=== PATIENT | female | born 1950 | race Caucasian/White ===

== ENCOUNTER 2024-03-27 13:53 | Inpatient (IN) | payer MEDICARE, OTHER, SELFPAY ==
[2024-03-27 13:27] VITALS: BP 147/46; PULSE 83; RESP 17; TEMP 36.6; O2SAT 99; BMI 42.7
[2024-03-27] MEDS: Acetaminophen 500 MG Tablet 1000 MG PO ×2 (15:57→22:16)
[2024-03-27 17:05] VITALS: BP 135/48; PULSE 61; RESP 18; TEMP 36.8; O2SAT 93
[2024-03-27] MEDS: Atorvastatin Calcium 20 MG Tablet PO (22:16)
[2024-03-27] MEDS: DULoxetine Hcl 20 MG Capsule PO (22:17)
[2024-03-27] MEDS: Rivaroxaban 15 MG Tablet PO (22:17)
[2024-03-27] MEDS: Pregabalin 75 MG Capsule PO (22:19)
[2024-03-28] MEDS: Acetaminophen 500 MG Tablet 1000 MG PO ×3 (05:12→21:13)
[2024-03-28 05:15] VITALS: BP 145/79; PULSE 60; RESP 15; TEMP 36.6; O2SAT 96
[2024-03-28 06:57] LABS: Absolute Lymphocyte Count 2.11 X10^3/uL (0.83-4.51); Absolute Neutrophil Count 9.3 X10^3/uL (2.0-7.7); Basophil# 0.07 X10^3/uL; Basophil% 0.5 % (0-1); Eosinophil# 0.33 X10^3/uL; Eosinophils% 2.5 % (0-5); Hematocrit 29.3 % (37-47); Hemoglobin 9.1 g/dL (12.0-15.0); Lymphocyte # 2.11 X10^3/ul (0.83-4.51); Lymphocyte % 16.2 % (19-41); Mean Corp Hgb Conc 31.1 g/dL (32-36); Mean Corpuscular Hgb 30.8 pg (27.0-32.0); Mean Corpuscular Volume 99.3 fL (81-99); Mean Platelet Vol. 11.2 fl (6.2-12.0); Monocyte# 0.58 X10^3/uL; Monocyte% 4.5 % (0-10); NRBC Flagged by Analyzer 0 % (0-5); Neutrophil # 9.33 X10^3/uL (2.7-7.7); Neutrophil % 71.9 % (47-70); Platelet Count 312 K/mm3 (150-450); RBC Distribution Width CV 14.4 % (11.6-14.6); RBC Distribution Width SD 51.5 fl (35.1-43.9); Red Blood Count 2.95 M/mm3 (4.2-5.4)
[2024-03-28 07:47] LABS: ALB/GLOB Ratio 0.6 RATIO (0.9-2.4); AST(SGOT) 18 U/L (15-37); Alanine Aminotransfer ALT/SGPT 12 U/L (13-56); Albumin, Serum 2.3 g/dL (3.2-5.0); Alkaline Phosphatase 90 U/L (45-117); Anion Gap 7 (5-15); BUN 12 mg/dL (7-18); BUN/Creat Ratio 12.6 RATIO (10-20); Calcium,Total 8.7 mg/dL (8.5-10.1); Chloride 104 mmol/L (98-107); Creatinine, Serum 0.96 mg/dL (0.55-1.02); EST Glomerular Filtration Rate 61 mL/min (>60); Est Glom Filt Rate - Afr Amer 74 mL/min (>60); Estimated Creatinine Clearance 63.78 ml/min; Globulin 3.7 g/dL (2.2-4.2); Glucose 75 mg/dL (74-106); Magnesium 1.7 mg/dL (1.6-2.6); Phosphorus 3.6 mg/dL (2.5-4.9); Potassium 4.2 mmol/L (3.5-5.1); Sodium Level 137 mmol/L (136-145); Uric Acid 2.5 mg/dL (2.6-6.0)
[2024-03-28] MEDS: Pantoprazole Sodium 40 MG Tablet PO (07:53)
[2024-03-28] MEDS: Allopurinol 300 MG Tablet PO (07:53)
[2024-03-28] MEDS: Rivaroxaban 15 MG Tablet PO ×2 (07:53→21:13)
[2024-03-28] MEDS: amLODIPine 5 MG Tablet PO (07:53)
[2024-03-28] MEDS: Lisinopril 20 MG Tablet PO (07:53)
[2024-03-28] MEDS: Pregabalin 75 MG Capsule PO ×2 (07:53→21:09)
[2024-03-28 08:00] VITALS: BP 143/48; PULSE 65
--- NOTE | 2024-03-28 14:21 | PCM.HP.STD ---
HPI - General General Date of Admission: 03/27/24 Date of Service: 03/28/24 Chief Complaint: Debility due to lumbar fusion and BL PE's post op HPI Narrative SUNNY CHIRINOS, is a 73 YO F with a PMH of HTN, HLD, morbid obesity, generalized anxiety disorder with panic attacks/depression (when she was hannah-menopausal - this resolved. Recently started on duloxetine for chronic pain), gout, pharyngeal esophageal dysphagia, GERD, osteoarthritis and lumbar radiculopathy/neurogenic claudication. She underwent a transforaminal lumbar interbody fusion on 03/14/24. She was discharged home but developed pain in her feet/calves and poor appetite and saw her PCP on 03/21/2024. Lab work was done and was notable for a white blood cell count of 28,000, sodium of 127 and a creatinine of 2.1. She was sent to the local emergency department at the advice of her PCP and her blood pressure was 70s over 50s. Serum lactate was elevated at 2.9. W/U was + for BL PE's and DVT of the left femoral, popliteal, gastrocnemius and tibial peroneal veins. There was no evidence of right heart strain. She was hydrated and started on IV vancomycin/cefepime. She was admitted to [facility]. She was initiated on a heparin infusion and later transitioned to Xarelto. Empiric antibiotics were stopped when the patient presented to [facility]. She was transferred to the acute inpt rehab unit at [facility] on 03/27/24 for 3 hours of therapy daily to restore function/independence at or near her baseline. All documentation from [facility] was reviewed, including the med list. Afebrile since arrival at [facility]. Blood pressure has ranged from 135/48 to 145/79. Heart rate is ranged from 60-83. All lab from this morning was personally reviewed. The white blood cell count is 13 with 72% neutrophils and 4.4% immature granulocytes. Platelets are within normal limits. Hemoglobin is 9.1 with an MCV of 99.3 and an elevated RDW. Sodium is 137 and the potassium is 4.2. Serum bicarb is normal. The BUN is 12 with a creatinine of 0.96 and a creatinine clearance of 64. Uric acid is 2.5. Phosphorus is 3.6 and the magnesium is borderline low at 1.7. LFTs are unremarkable. PFSH Medical History (Updated 03/29/24 @ 13:[address] Liz Parsons DO) History of gout Osteoarthritis Anxiety and depression Morbid obesity with BMI of 40.0-44.9, adult Ventral hernia without obstruction or gangrene Neurogenic claudication due to lumbar spinal stenosis Spondylolisthesis High cholesterol Chronic pain Hypertension DVT (deep venous thrombosis) Pulmonary embolism GERD (gastroesophageal reflux disease) Home Medications ?Medication ?Instructions ?Recorded ?Last Taken ?Type acetaminophen 500 mg capsule 1,000 mg PO Q8 Pain 03/27/24 03/26/24 History allopurinol 300 mg tablet 300 mg PO DAILY Gout 03/27/24 03/27/24 History amlodipine 5 mg-benazepril 20 mg 1 cap PO DAILY BP 03/27/24 Unknown History capsule duloxetine 20 mg capsule,delayed 20 mg PO QHS Back pain 03/27/24 03/26/24 History release (Cymbalta) pantoprazole 40 mg tablet,delayed 40 mg PO DAILY GERD 03/27/24 03/27/24 History release pregabalin 75 mg capsule 75 mg PO BID Spinal stenosis 03/27/24 Unknown History rivaroxaban 15 mg tablet 15 mg PO BID Blood thinner 03/27/24 03/27/24 History rivaroxaban 20 mg tablet 20 mg PO DAILY Blood thinner 03/27/24 Unknown History rosuvastatin 10 mg tablet 10 mg PO DAILY Cholestrol 03/27/24 03/27/24 History Allergy/AdvReac Type Severity Reaction Status Date / Time Penicillins AdvReac Unknown Other Verified 03/27/24 14:21 Sulfa (Sulfonamide AdvReac Unknown Rash Verified 03/27/24 14:21 Antibiotics) (sulfa drugs) Family History (Updated 03/28/24 @ 15:[address] Liz Parsons DO) Mother Breast cancer Heart disease Mother had atrial fibrillation. She passed at the age of 89 after a fall. Father CVA (cerebral vascular accident) Cancer Prostate Brother Degenerative disc disease Has had surgery on the cervical spine and the lumbar spine. Sister No problems noted. Surgical History History of removal of ovarian cyst Hx of cholecystectomy H/O adenoidectomy History of tonsillectomy Hx of total knee arthroplasty S/P lumbar fusion Social History (Updated 03/28/24 @ 15:[address] Liz Parsons, ) household members: spouse housing: other details: [place] basement. One-step to enter house number of children: 3 pets and animals: No Smoking Status: Never smoker alcohol intake: current alcohol intake frequency: a few times a month Alcohol type: beer substance use type: does not use ROS Constitutional Constitutional: Reports fatigue; Denies anorexia, change in weight, chills, fever(s), night sweats or weakness Eyes Eyes: Denies blurry vision, change in vision, eye pain or loss of vision ENT HEENT: Denies abnormal hearing, dysphagia, headache(s), hearing loss, nasal congestion or sore throat Cardiovascular Cardiovascular: Denies chest pain, dyspnea on exertion, edema, lightheadedness, orthopnea, palpitations, paroxysmal nocturnal dyspnea or syncope Respiratory/Chest Respiratory/Chest: Denies cough, dyspnea, shortness of breath at rest, shortness of breath with exertion or wheezing Gastrointestinal Gastrointestinal: Denies abdominal pain, constipation, diarrhea, dyspepsia, hematemesis, hematochezia, nausea or vomiting Genitourinary Genitourinary: Denies dysuria, hematuria, nocturia, urinary frequency, urinary hesitancy, urinary incontinence or urinary urgency Musculoskeletal Musculoskeletal: Reports back pain, extremity pain, radiating pain into limb and stiffness; Denies joint pain, joint swelling or neck pain Integumentary Integumentary: Reports other Details: Surgical incision over lumbar spine ; Denies alopecia, changing lesions, jaundice, pruritus or rash Neurologic Neurologic: Reports radicular pain and other Details: Radicular pain, primarily into the right lower extremity ; Denies confusion, disequilibrium, dizziness, focal weakness, headache(s), paresthesias, seizures or tremor(s) Psychiatric Psychiatric: Denies anxiety, depression, homicidal ideation or suicidal ideation Endocrine Endocrinology: Denies change in body appearance, polydipsia or polyuria Hematologic/Lymphatic Hematologic/Lymphatic: Denies easy bleeding, easy bruising or lymphadenopathy Allergic/Immunologic Allergic/Immunologic: Denies rhinitis, eczemia or asthma Vital Signs Vital Signs Vital Signs: 03/27/24 17:05 03/27/24 20:08 03/28/24 05:15 Temperature 98.2 F 98 F Temperature Source Temporal Oral Pulse Rate 61 60 Respiratory Rate 18 15 Respiratory Effort Normal Respiratory Depth Normal Respiratory Pattern Normal Blood Pressure 135/48 H 145/79 H Blood Pressure Mean 77 101 Blood Pressure Source Monitor Blood Pressure Position Sitting Blood Pressure Location Left Arm Pulse Ox 93 96 Oxygen Delivery Method Room Air Room Air Room Air 03/28/24 08:00 Temperature Temperature Source Pulse Rate 65 Respiratory Rate Respiratory Effort Respiratory Depth Respiratory Pattern Blood Pressure 143/48 H Blood Pressure Mean 79 Blood Pressure Source Monitor Blood Pressure Position Sitting Blood Pressure Location Right Arm Pulse Ox Oxygen Delivery Method Weight Weight: 241 lb Body Mass Index (BMI) 42.7 Physical Exam Const alert, oriented x3, no apparent distress and well nourished General Appearance: cooperative and well kempt HEENT moist oral mucous membranes HEENT Narrative: No thrush Eyes PERRL, EOMs intact bilaterally, conjunctivae normal and no scleral icterus Eyes Narrative: No discharge from the eyes and no mattering of the eyelashes. Neck no JVD, No nodes and no carotid bruits General: trachea midline Chest Chest: symmetrical chest wall rise Resp normal respiratory effort, no use of accessory muscles and clear to auscultation bilaterally Effort and Inspection: able to speak in complete sentences Cardio regular rate, regular rhythm, S1 normal heart sound, S2 normal heart sound, no murmurs, no rub and no gallops Cardio Narrative: No ectopy GI normal to inspection, nondistended, normoactive bowel sounds, soft to palpation and non-tender GI Narrative: No guarding with palpation. Tells me her bowels are moving regularly. no CVA tenderness Narrative: No longer having hesitancy and straining to urinate since the surgery. Denies dysuria. Extremity no calf tenderness Extremity Narrative: She chronically has some edema of her lower extremities, especially at night. Does not tolerate FISH hose very well and states they increased the pain in her legs. She has superficial varicosities. Skin over the distal lower extremities is dry. No openings in the skin over the lower extremities. Good capillary refill. Skin Skin Narrative: The lumbar incision is healing. There is no dehiscence and there is no purulent DC. here is some dried blood and serous drainage at the margins of the incision. No hannah-incisional erythema. Neuro oriented x3, CN's II-XII intact bilaterally and moves all extremities Psych mental status grossly normal, thought process normal, cooperative, affect normal, speech normal, activity/motor behavior normal, denies hallucinations and denies suicidal ideation Appearance: appropriate and well kempt Attitude: calm Activity / Motor Behavior: appropriate eye contact Results Lab / Micro Data 03/28/24 06:43 03/28/24 06:43 Labs: Laboratory Results - last 24 hr 03/28/24 06:43: WBC 13.0 H, RBC 2.95 L, Hgb 9.1 L, Hct 29.3 L, MCV 99.3 H, MCH 30.8, MCHC 31.1 L, RDW Std Deviation 51.5 H, RDW Coeff of Nikia 14.4, Plt Count 312, MPV 11.2, Immature Gran % (Auto) 4.400 H, Neut % (Auto) 71.9 H, Lymph % (Auto) 16.2 L, Meigs % (Auto) 4.5, Eos % (Auto) 2.5, Baso % (Auto) 0.5, Absolute Neuts (auto) 9.3 H, Absolute Lymphs (auto) 2.11, Nucleated RBC % 0, Sodium 137, Potassium 4.2, Chloride 104, Carbon Dioxide 26.0, Anion Gap 7, BUN 12, Creatinine 0.96, Estim Creat Clear Calc 63.78, Est GFR (MDRD) Af Amer 74, Est GFR (MDRD) Non-Af 61, BUN/Creatinine Ratio 12.6, Glucose 75, Uric Acid 2.5 L, Calcium 8.7, Phosphorus 3.6, Magnesium 1.7, Total Bilirubin 0.40, AST 18, ALT 12 L, Alkaline Phosphatase 90, Total Protein 6.0 L, Albumin 2.3 L, Globulin 3.7, Albumin/Globulin Ratio 0.6 L Assessment & Plan Assessment/Plan (1) Debility: (2) Pulmonary embolism: QUALIFIERS: Pulmonary embolism type: unspecified Chronicity: acute Acute cor pulmonale presence: without acute cor pulmonale Qualified Code(s): I26.99 - Other pulmonary embolism without acute cor pulmonale PLAN: Multiple bilateral. (3) DVT (deep venous thrombosis): QUALIFIERS: DVT location: lower extremity Affected thrombotic vein of extremity: unspecified lower extremity proximal vein Chronicity: acute Laterality: left Qualified Code(s): I82.4Y2 - Acute embolism and thrombosis of unspecified deep veins of left proximal lower extremity PLAN: Left femoral, popliteal, gastrocnemius and tibioperoneal veins. (4) S/P lumbar fusion: PLAN: 03/14/2024 at [facility]. (5) Acute blood loss as cause of postoperative anemia: (6) MARKIE (acute kidney injury): PLAN: Resolved with hydration. (7) Chronic anticoagulation: PLAN: Currently on loading dose of Xarelto, 15 mg twice daily. Will need anticoagulation for 6 months. (8) High cholesterol: PLAN: Continue rosuvastatin (9) Hypertension: QUALIFIERS: Hypertension type: primary hypertension Qualified Code(s): I10 - Essential (primary) hypertension PLAN: Continue amlodipine and lisinopril. (10) GERD (gastroesophageal reflux disease): QUALIFIERS: Esophagitis presence: without esophagitis Qualified Code(s): K21.9 - Gastro-esophageal reflux disease without esophagitis PLAN: Continue Protonix. (11) History of gout: PLAN: Plan PLAN PT for gait stability OT for ADL's Analgesics as needed - on only Tylenol at admission to rehab but, the ambulance ride from [facility] exacerbated the radicular pain in the RLE. Will add Oxycodone 10 mg in the AM and at HS and also 5 mg Q4H for pain 4-10. Tells me that she tolerates the Oxy with no constipation, no fatigue, no increased somnolence and no nausea. Bowel protocol Fall precautions Assess for Anxiety/Depression GI prophylaxis -pantoprazole DVT prophylaxis -currently being actively treated for bilateral pulmonary emboli and DVT in the left lower extremity. Currently on a loading dose of Xarelto 15 mg twice daily and will transition to 20 mg once daily after the load is completed. Follow up with PCP and neurosurgeon following DC from [facility] AM lab including CMP, CBC, Mag and Phos -personally reviewed Incentive spirometry. Encouraged her to get up and walk around the room every hour while awake. Switch out the recliner for a straight back chair Start Dejon for wound healing. Check a Hemoccult stool UA is only 2.5 mg - likely does no0t need 300 mg of Allopurinol Overnight trending pulse ox Tells me that she snores at night....yolande if she lies on her back which she is having to do now since she had the lumbar fusion. 1. Do you snore loudly? Y 2. Do you often feel tired, fatigued or sleepy during the day? N 3. Has anyone ever observed you stop breathing during sleep? N 4. Do you have (or are you being treated for) HTN? Y BMI 42.7 AGE 73 Neck circumference 39 cm Gender F Total 4 Charges/Coding Visit Charges Inpatient E&M: 03843 Init Hosp L2
[2024-03-28] MEDS: oxyCODONE 5 MG Tablet PO (15:36)
[2024-03-28 15:50] VITALS: O2SAT 98
[2024-03-28 18:00] VITALS: BP 107/60; PULSE 72; RESP 16; TEMP 36.3; O2SAT 100
[2024-03-28 19:59] VITALS: RESP 16; O2SAT 96
[2024-03-28] MEDS: oxyCODONE 5 MG Tablet 10 MG PO (21:09)
[2024-03-28] MEDS: Atorvastatin Calcium 20 MG Tablet PO (21:13)
[2024-03-28] MEDS: DULoxetine Hcl 20 MG Capsule PO (21:13)
--- NOTE | 2024-03-28 21:18 | NURSING ---
Neck circumference measured per pt order. Neck measure was 39cm.
[2024-03-28 21:58] VITALS: PULSE 68; O2SAT 96
[2024-03-29 06:00] VITALS: BP 125/48; PULSE 64; RESP 17; TEMP 36.6; O2SAT 98
[2024-03-29] MEDS: Acetaminophen 500 MG Tablet 1000 MG PO ×3 (06:18→21:22)
[2024-03-29] MEDS: oxyCODONE 5 MG Tablet 10 MG PO ×2 (06:29→21:21)
[2024-03-29] MEDS: Pregabalin 75 MG Capsule PO ×2 (07:59→21:29)
[2024-03-29] MEDS: amLODIPine 5 MG Tablet PO (07:59)
[2024-03-29] MEDS: Rivaroxaban 15 MG Tablet PO ×2 (08:00→21:22)
[2024-03-29] MEDS: Pantoprazole Sodium 40 MG Tablet PO (08:00)
[2024-03-29] MEDS: Allopurinol 300 MG Tablet PO (08:00)
[2024-03-29] MEDS: Lisinopril 20 MG Tablet PO (08:00)
--- NOTE | 2024-03-29 11:09 | PCM.PROGNOTE ---
Subjective Subjective Afebrile VSS - Maintaining appropriate oxygen saturation on RA Oral intake - FOOD good FLUIDS good Discussed with nursing - had an emesis last night. she stated this happens sometimes and is often related to food.....she attributed the episode last night a a food addictive which I suspect may have been Dejon added yesterday for wound healing. Reviewed the THERAPY notes Medication list reviewed. I reviewed the overnight tending pulse ox and she is < 89% only 50 sec during the time she was monitored. There were no desaturation events. Kamala tells me her pain is much better today with the scheduled pain medication. She slept well last night. She had an episode of nausea with a small emesis and attributes this to Dejon. She denies nausea today and also denies abdominal pain. Denies constipation. Denies chest pain, shortness of breath at rest, shortness of breath with exertion, dysuria, night sweats, shaking chills. Objective Data Objective Data Vital Signs: Vital Signs Temp Pulse Resp BP Pulse Ox O2 Del Method FiO2 97.8 F 64 17 125/48 H 98 Room Air 21 03/29/24 06:00 03/29/24 06:00 03/29/24 06:00 03/29/24 06:00 03/29/24 06:00 03/29/24 08:35 03/28/24 21:58 Oxygen Delivery Method Room Air Weight: 241 lb 0.008 oz Body Mass Index (BMI) 42.7 Intake & Output: Intake and Output for Last 24 Hours 03/27/24 03/28/24 03/29/24 22:59 23:59 23:59 Intake Total 520 / 520 1550 / 1550 440 / 440 Output Total 300 / 300 1450 / 1450 500 / 500 Balance 220 / 220 100 / 100 -60 / -60 Lab / Micro Data 03/28/24 06:43 03/28/24 06:43 Physical Exam Const alert, oriented x3 and no apparent distress Constitutional Narrative: Was napping when I entered the room but arouses fairly easily. General Appearance: cooperative HEENT moist oral mucous membranes Resp normal respiratory effort and clear to auscultation bilaterally Effort and Inspection: Negative for tachypneic, respiratory distress or labored Cardio regular rate and regular rhythm Cardio Narrative: No murmur, no gallop. GI normal to inspection, nondistended, normoactive bowel sounds, soft to palpation and non-tender Extremity Extremity Narrative: Karthikeyan wrap's are in place and she states these are much more comfortable than the FISH hose which were causing pain in the right lower extremity. She denies radicular pain today. Some mild ankle edema bilaterally. Psych cooperative and affect normal Psych Narrative: Good appetite, sleeping well at night. Assessment & Plan Assessment/Plan (1) Debility: (2) Pulmonary embolism: QUALIFIERS: Pulmonary embolism type: unspecified Chronicity: acute Acute cor pulmonale presence: without acute cor pulmonale Qualified Code(s): I26.99 - Other pulmonary embolism without acute cor pulmonale PLAN: Multiple bilateral. (3) DVT (deep venous thrombosis): QUALIFIERS: DVT location: lower extremity Affected thrombotic vein of extremity: unspecified lower extremity proximal vein Chronicity: acute Laterality: left Qualified Code(s): I82.4Y2 - Acute embolism and thrombosis of unspecified deep veins of left proximal lower extremity PLAN: Left femoral, popliteal, gastrocnemius and tibioperoneal veins. (4) S/P lumbar fusion: PLAN: 03/14/2024 at [facility]. (5) Acute blood loss as cause of postoperative anemia: (6) Chronic anticoagulation: PLAN: Currently on loading dose of Xarelto, 15 mg twice daily. Will need anticoagulation for 6 months. PLAN: Plan 1. Continue therapy 2. Discontinue Dejon due to nausea/vomiting 3. Add vitamin C and vitamin D to the current drug regimen to promote wound healing 4. We received confirmation from surgery that the konstantin could be removed. Will remove every other staple today and observe for the next 48 hours. If no dehiscence will remove the remainder of the konstantin. Charges/Coding Visit Charges Inpatient E&M: 68111 Subs Hosp L1
--- NOTE | 2024-03-29 11:14 | PCM.RU.PYE ---
Admission Information Primary Diagnosis:: debility due to Lumbar fusion and BL PE's Status Changes from Prescreening?: No changes Identified Actual Problem List:: Skin Intergrity, Pain, ALteration in Cmfrt, Alteration in Sleep, Mobility Impaired, Self Care Deficit and Alteration-Leisure Activ. Potential Problem List:: DVT, Bleeding, Infection, UTI, Aspiration, Falls, Skin Integrity and Depression Risk of Complications DVT: - (Bilateral lower extremity Karthikeyan wraps and Xarelto) Bleeding: Monitor Lab Values, Nursing to Teach Precautions for anti-coagulation therapy., Wound, if applicable, to be assessed every shift. and Stroke patients assessed for lethargy or change in status. Infection: Clinical Staff to Monitor for S/S of infection: and S/S of infection include fever, redness, warmth, etc. Urinary Tract Infection: Monitor for frequency, burning, discomfort, or incontinence. and Nursing will obtain urine sample for urinalysis and C&S when ordered. Aspiration: Clinical staff will monitor for coughing, drooling, congestion., Speech will evaluate swallowing and dsyphasia. and Nursing will monitor patient swallowing during meals. Falls: Patient will be evaluated for Fall Precautions and Patient will be placed on Fall Precautions as indicated per protocol. Skin Breakdown: Nursing will assess skin daily using assessment tool. and Nursing will place on Skin Breakdown Precautions as indicated. Pain: Clinical staff will assess patient's pain level per protocol., Medications will be given, if needed, and the pain level reassessed. and Other methods: Massage, distraction, decrease stimulus, etc. used PRN. Plan of Care Patient requires physician specializing in physical medicine and rehab oversight to provide close medical supervision of rehab issues including: Pain Management, Sleep Problems, Bowel and Bladder, Medical and co-morbidity Management, DVT prophylaxis, Rehabilitation Leadership and Coordination of treatment team Patient needs Physical Therapy: For a minimum of 1 hour and At least 5 out of 7 days Patient needs Physical Therapy to improve:: Mobility, Strengthening, Transfers, Stretching, ROM, Endurance, Stairs, Gait and Balance Patient needs Occupational Therapy: For a minimum of 1 hour and At least 5 out of 7 days Patient needs Occupational Therapy to improve ADL's incl.: Eating, Grooming, Bathing, Dressing, Toileting, Toilet transfers, Community Reintegration, Higher functioning activities, Household tasks, Adaptive Equipment, Splinting and Other activities as determined Patient requires 24/ Rehabilitation Nursing for: Pain Issues, Identifying and preventing risk factors, Monitoring and reporting current medical conditions, Assisting with ambulation, transfer, and all ADL's, Teaching patients about disease process and medications, Family teaching, Providing safe environment, Bowel and Bladder Issues, Skin integrity and Medication Management Patient needs Gerentological Physiotherapist/ Case Management for: Discharge Planning, Arranging Home Equipment or Services and Family Interventions Patient needs Dietary and Nutrition Services for: Adequate Nutrition, Nutritional Supplements and Nutritional Education Goals Goals Patient will remain: free from falls Patient will perform eating at: MOD I level of assist. Patient will perform bed mobility at: MOD I level of assist. Patient will complete transfers from bed to chair at: MOD I level of assist. Patient will ambulate: - (Greater than 300 feet with least restrictive device at modified) Patient will complete upper body dressing at: MOD I level of assist. Patient will complete lower body dressing at: MOD I level of assist. (With adaptive equipment as needed) Patient will complete toilet transfer at: MOD I level of assist. Patient will complete toileting at: MOD I level of assist. Patient will perform bathing at: MOD I level of assist. (Upper body bathing independently and lower body bathing with assistive equipment as needed at mod I.) Patient will perform Tub/Shower transfer at: - (Supervision with DME as needed) Patient will complete grooming at: MOD I level of assist. (While standing at the sink) Patient will complete home management skills at: MOD I level of assist. Patient will achieve: 12 stairs and - (1 curb step at mod I so she can enter her home.) Patient will have pain level of: of 3 or less Patient's skin will: remain intact Patient will receive: adequate nutrition. Discharge Planning Estimated Length of stay (days): 14 Anticipated D/C Destination: Home with Outpt Therapy Was Preadmission Assessment Accurate?: Yes
--- NOTE | 2024-03-29 13:15 | CASEMGMT ---
Social Work SW requested pt have family provide advanced directives. Lindy Rendon, [employer] APPRENTICE
--- NOTE | 2024-03-29 14:24 | NURSING ---
Addendum entered by Massiel Dimas 03/29/24 15:16: 9 konstantin remain Original Note: Every other staple from back incision removed at this time. Incision remains well approximated. Area cleansed and scant amount of blood from lower staple noted. Last staple remaining in incision more imbedded and more difficult to visualize, to be aware of with removal of remaining konstantin.
[2024-03-29] MEDS: Vitamin E 400 UNITS Capsule PO (14:51)
[2024-03-29] MEDS: Ascorbic Acid 500 MG Tablet PO (16:18)
[2024-03-29 18:00] VITALS: BP 108/47; PULSE 63; RESP 18; TEMP 36.6; O2SAT 99
[2024-03-29] MEDS: Atorvastatin Calcium 20 MG Tablet PO (21:21)
[2024-03-29] MEDS: DULoxetine Hcl 20 MG Capsule PO (21:21)
[2024-03-29 22:00] VITALS: PULSE 82; RESP 15; O2SAT 96
[2024-03-30 06:00] VITALS: BP 113/42; PULSE 68; RESP 16; TEMP 36.9; O2SAT 98
[2024-03-30] MEDS: Acetaminophen 500 MG Tablet 1000 MG PO ×3 (06:27→20:27)
[2024-03-30] MEDS: oxyCODONE 5 MG Tablet 10 MG PO ×2 (06:27→20:26)
[2024-03-30] MEDS: Pantoprazole Sodium 40 MG Tablet PO (08:22)
[2024-03-30] MEDS: Senna/Docusate Sodium 1 Tablet 2 TABLET PO ×2 (08:22→20:27)
[2024-03-30] MEDS: Allopurinol 300 MG Tablet PO (08:23)
[2024-03-30] MEDS: Ascorbic Acid 500 MG Tablet PO ×2 (08:23→16:58)
[2024-03-30] MEDS: Vitamin E 400 UNITS Capsule PO (08:23)
[2024-03-30] MEDS: Rivaroxaban 15 MG Tablet PO ×2 (08:23→20:26)
[2024-03-30] MEDS: Lisinopril 20 MG Tablet PO (08:23)
[2024-03-30] MEDS: amLODIPine 5 MG Tablet PO (08:23)
[2024-03-30] MEDS: Pregabalin 75 MG Capsule PO ×2 (08:25→20:27)
--- NOTE | 2024-03-30 09:52 | PN_ITS ---
Subjective Subjective Afebrile VSS - Maintaining appropriate oxygen saturation on RA Oral intake - FOOD good FLUIDS good Discussed with nursing - no problems that need addressed Reviewed the THERAPY notes Medication list reviewed. Nausea resolved with the discontinuation of Dejon. Kamala denies lightheadedness, palpitations, shortness of breath, chest pain, nausea/vomiting/abdominal pain, dysuria and calf tenderness. She tells me she slept well last night. Appetite is good. Denies night sweats and chills. States pain is adequately controlled with current drug regimen. She is complaining of generalized achiness today. It is raining today and all of the older folks on rehab are c/o achiness. Every other staple was removed from the lumbar incision yesterday. Has not had a bowel movement since 03/28/2024 so Hemoccult has not been collected yet. Objective Data Objective Data Vital Signs: Vital Signs Temp Pulse Resp BP Pulse Ox O2 Del Method FiO2 98.5 F 68 16 113/42 L 98 Room Air 21 03/30/24 06:00 03/30/24 06:00 03/30/24 06:00 03/30/24 06:00 03/30/24 06:00 03/30/24 06:00 03/28/24 21:58 Oxygen Delivery Method Room Air Weight: 241 lb 0.008 oz Body Mass Index (BMI) 42.7 Intake & Output: Intake and Output for Last 24 Hours 03/28/24 03/29/24 03/30/24 23:59 23:59 23:59 Intake Total 1550 / 1550 2030 / 2030 320 / 320 Output Total 1450 / 1450 1800 / 1800 300 / 300 Balance 100 / 100 230 / 230 20 / 20 Lab / Micro Data 03/28/24 06:43 03/28/24 06:43 Physical Exam Const alert, oriented x3 and no apparent distress General Appearance: cooperative Resp clear to auscultation bilaterally Effort and Inspection: Negative for tachypneic Cardio regular rate and regular rhythm Cardio Narrative: No ectopy GI normal to inspection, nondistended, normoactive bowel sounds, soft to palpation and non-tender Extremity no calf tenderness General Extremity: edema Skin Skin Narrative: Every other staple was removed yesterday. The incision is intact but, there is a small area at the distal pole of the incision that had a small amount of dehiscence. This area is healing. No hannah-incisional erythema and no DC from the wound today. Due to body habitus there is a fair amount of tension on the margins of the incision. Will re-evaluate Thursday and possibly remove more konstantin at that time. General Skin Exam: no breakdown Rashes: no rashes Psych affect normal Assessment & Plan Assessment/Plan (1) Debility: (2) Pulmonary embolism: QUALIFIERS: Pulmonary embolism type: unspecified Chronicity: a cute Acute cor pulmonale presence: without acute cor pulmonale Qualified Code(s): I26.99 - Other pulmonary embolism without acute cor pulmonale PLAN: Multiple bilateral. (3) DVT (deep venous thrombosis): QUALIFIERS: DVT location: lower extremity Affected thrombotic vein of extremity: unspecified lower extremity proximal vein Chronicity: acute Laterality: left Qualified Code(s): I82.4Y2 - Acute embolism and thrombosis of unspecified deep veins of left proximal lower extremity PLAN: Left femoral, popliteal, gastrocnemius and tibioperoneal veins. (4) S/P lumbar fusion: PLAN: 03/14/2024 at [facility]. (5) Acute blood loss as cause of postoperative anemia: (6) Chronic anticoagulation: PLAN: Currently on loading dose of Xarelto, 15 mg twice daily. Will need anticoagulation for 6 months. PLAN: Plan 1. Continue therapy 2. No changes to the drug regimen today. Charges/Coding Visit Charges Inpatient E&M: 08074 [facility] L1
[2024-03-30] MEDS: oxyCODONE 5 MG Tablet PO (12:08)
[2024-03-30 17:33] VITALS: BP 105/47; PULSE 68; RESP 17; TEMP 36.3; O2SAT 99
[2024-03-30] MEDS: DULoxetine Hcl 20 MG Capsule PO (20:26)
[2024-03-30] MEDS: Atorvastatin Calcium 20 MG Tablet PO (20:27)
[2024-03-31] MEDS: Acetaminophen 500 MG Tablet 1000 MG PO ×3 (05:50→20:57)
[2024-03-31] MEDS: oxyCODONE 5 MG Tablet 10 MG PO ×2 (05:51→20:57)
[2024-03-31 06:00] VITALS: BP 135/52; PULSE 68; RESP 18; TEMP 36.3; O2SAT 96
[2024-03-31] MEDS: Senna/Docusate Sodium 1 Tablet 2 TABLET PO ×2 (08:07→20:57)
[2024-03-31] MEDS: Rivaroxaban 15 MG Tablet PO ×2 (08:07→20:57)
[2024-03-31] MEDS: Ascorbic Acid 500 MG Tablet PO ×2 (08:08→17:01)
[2024-03-31] MEDS: amLODIPine 5 MG Tablet PO (08:08)
[2024-03-31] MEDS: Lisinopril 20 MG Tablet PO (08:09)
[2024-03-31] MEDS: Pantoprazole Sodium 40 MG Tablet PO (08:09)
[2024-03-31] MEDS: Vitamin E 400 UNITS Capsule PO (08:09)
[2024-03-31] MEDS: Allopurinol 300 MG Tablet PO (08:10)
[2024-03-31] MEDS: Pregabalin 75 MG Capsule PO ×2 (08:12→20:57)
--- NOTE | 2024-03-31 11:12 | PN_ITS ---
Subjective Subjective Kamala was seen on team rounds today. Her family was present in the room for rounds. Afebrile VSS - Maintaining appropriate oxygen saturation on RA Oral intake - FOOD good FLUIDS good The last bowel movement was on 03/28/2024. She had been refusing the senna but, has now taken 3 doses in the last 2 days. Discussed with nursing - no problems that need addressed Reviewed the THERAPY notes Medication list reviewed. Kamala denies cephalgia, lightheadedness, chest pain, shortness of breath, palpitations, nausea/vomiting/abdominal pain, dysuria and calf tenderness. She tells me her pain is adequately controlled and she is sleeping well at night. Objective Data Objective Data Vital Signs: Vital Signs Temp Pulse Resp BP Pulse Ox O2 Del Method FiO2 97.3 F L 68 18 135/52 H 96 Room Air 21 03/31/24 06:00 03/31/24 06:00 03/31/24 06:00 03/31/24 06:00 03/31/24 06:00 03/31/24 06:00 03/28/24 21:58 Oxygen Delivery Method Room Air Weight: 241 lb 0.008 oz Body Mass Index (BMI) 42.7 Intake & Output: Intake and Output for Last 24 Hours 03/29/24 03/30/24 03/31/24 23:59 23:59 23:59 Intake Total 2030 / 2030 800 / 800 840 / 840 Output Total 1800 / 1800 700 / 700 400 / 400 Balance 230 / 230 100 / 100 440 / 440 Lab / Micro Data 04/01/24 06:03 03/28/24 06:43 Physical Exam Const alert, oriented x3 and no apparent distress General Appearance: cooperative Resp clear to auscultation bilaterally Effort and Inspection: Negative for tachypneic Cardio regular rate and regular rhythm Cardio Narrative: No ectopy GI normal to inspection, nondistended, normoactive bowel sounds, soft to palpation and non-tender Extremity no calf tenderness General Extremity: edema Skin Skin Narrative: Every other staple was removed yesterday. The incision is intact but, there is a small area at the distal pole of the incision that had a small amount of dehiscence. This area is healing. No hannah-incisional erythema and no DC from the wound today. Due to body habitus there is a fair amount of tension on the margins of the incision. Will re-evaluate Thursday and possibly remove more konstantin at that time. General Skin Exam: no breakdown Rashes: no rashes Psych affect normal Assessment & Plan Assessment/Plan (1) Debility: (2) Pulmonary embolism: QUALIFIERS: Pulmonary embolism type: unspecified Chronicity: a cute Acute cor pulmonale presence: without acute cor pulmonale Qualified Code(s): I26.99 - Other pulmonary embolism without acute cor pulmonale (3) DVT (deep venous thrombosis): QUALIFIERS: DVT location: lower extremity Affected thrombotic vein of extremity: unspecified lower extremity proximal vein Chronicity: acute Laterality: left Qualified Code(s): I82.4Y2 - Acute embolism and thrombosis of unspecified deep veins of left proximal lower extremity (4) S/P lumbar fusion: (5) Acute blood loss as cause of postoperative anemia: (6) Chronic anticoagulation: PLAN: Plan 1. Continue therapy 2. Check a CBC in the a.m. 3. Hemoccult stool will be obtained with the next bowel movement. 4. all questions were answered to the patient and family's satisfaction. Charges/Coding Visit Charges Inpatient E&M: 88223 Subs Hosp L2
--- NOTE | 2024-03-31 13:42 | CASEMGMT ---
Social Work IDT met with patient, and two sons for Team meeting. Discussed patient's progress in PT/OT/ST/SN. Educated to Medicare approval of 10 days with DC 04/06. 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 Pt and family agreed, though inquired about ALDEN to see how pt functions at home. SW denied as insurance does not allow LOAs on this unit. Educated to mod I privilege prior to DC, if indicated by Dr and therapy, to allow pt build confidence in a structured environment. Pt and family encouraged and understand benefit of pt remaining until 04/06. SW confirmed pt would like to do OP PT at [facility] vs [facility]. pt has needed DME. SW will follow to finalize DC plans. Plan: DC home with 04/06, [facility] Therapy outpatient PT Lindy Rendon, TORITO LUEVANOW
[2024-03-31 17:55] VITALS: BP 119/58; PULSE 67; RESP 16; TEMP 36.4; O2SAT 99
[2024-03-31] MEDS: Atorvastatin Calcium 20 MG Tablet PO (20:57)
[2024-03-31] MEDS: DULoxetine Hcl 20 MG Capsule PO (20:57)
[2024-03-31 21:11] VITALS: PULSE 80
--- NOTE | 2024-03-31 21:15 | NURSING ---
Pt 3 days w/o BM. Offered PRN MOM per order. Pt declined. Prune juice offered to pt and pt also declined. Pt states she will take an intervention in the AM, but she does not want to take anything before bed.
[2024-04-01] VITALS (13 sets, daily range): BP systolic 93–133; BP diastolic 32–76; PULSE 73–112; RESP 12–18; TEMP 36–36.7; O2SAT 92–99; BMI 42.7
[2024-04-01] MEDS: Acetaminophen 500 MG Tablet 1000 MG PO ×3 (06:08→21:14)
[2024-04-01] MEDS: oxyCODONE 5 MG Tablet 10 MG PO (06:09)
[2024-04-01 06:13] LABS: Hematocrit 29.9 % (37-47); Hemoglobin 9.8 g/dL (12.0-15.0); Mean Corp Hgb Conc 32.8 g/dL (32-36); Mean Corpuscular Hgb 31.7 pg (27.0-32.0); Mean Corpuscular Volume 96.8 fL (81-99); Mean Platelet Vol. 11.6 fl (6.2-12.0); Platelet Count 329 K/mm3 (150-450); RBC Distribution Width CV 14.7 % (11.6-14.6); RBC Distribution Width SD 51.4 fl (35.1-43.9); Red Blood Count 3.09 M/mm3 (4.2-5.4)
--- NOTE | 2024-04-01 08:16 | NURSING ---
Pt on toilet for extended period. pt states she is OK. Checked on pt 2nd time pt was having emises, had hard BM and urinated.
[2024-04-01] MEDS: Vitamin E 400 UNITS Capsule PO (10:12)
[2024-04-01] MEDS: amLODIPine 5 MG Tablet PO (10:13)
[2024-04-01] MEDS: Pantoprazole Sodium 40 MG Tablet PO (10:13)
[2024-04-01] MEDS: Ascorbic Acid 500 MG Tablet PO (10:13)
[2024-04-01] MEDS: Rivaroxaban 15 MG Tablet PO (10:13)
[2024-04-01] MEDS: Senna/Docusate Sodium 1 Tablet 2 TABLET PO ×2 (10:13→21:14)
[2024-04-01] MEDS: Lisinopril 20 MG Tablet PO (10:13)
[2024-04-01] MEDS: Allopurinol 300 MG Tablet PO (10:14)
[2024-04-01] MEDS: Pregabalin 75 MG Capsule PO ×2 (10:15→21:13)
--- NOTE | 2024-04-01 11:21 | PN_ITS ---
Subjective Subjective Afebrile VSS - HR up to 112......she was sitting on the toilet after an emesis. The emesis continues bright red blood and clots. She is nauseated and this is the second emesis today. She denies abd pain. Maintaining appropriate oxygen saturation on RA Discussed with nursing - no problems that need addressed Reviewed the THERAPY notes Medication list reviewed. She is c/o not feeling well today. She is nauseated and feels weak. She had a BM today.....the last was 03/28/24. The BM was brown and formed. She denies any hx of PUD. She tells me that prior to the recent lumbar laminectomy she was taking Alleve for pain. She is currently on loading doses of Xarelto for multiple BL PE's. The emesis has red blood and clots in it. Denies abd cramping at this time. HGB was 9.1 yesterday and is 9.8 today. She denies lightheadedness. She has been on Protonix 40 mg daily PO. Hemoccult sent this morning is + for blood. Heart - increased resting rate, regular abd - soft, NT, BS's are not hyperactive. Not diaphoretic. Not pale. Objective Data Objective Data Vital Signs: Vital Signs Temp Pulse Resp BP Pulse Ox O2 Del Method FiO2 96.8 F L 112 H 18 133/46 H 98 Room Air 21 04/01/24 05:42 04/01/24 11:00 04/01/24 05:42 04/01/24 05:42 04/01/24 05:42 04/01/24 05:42 03/28/24 21:58 Oxygen Delivery Method Room Air Weight: 241 lb 0.008 oz Body Mass Index (BMI) 42.7 Intake & Output: Intake and Output for Last 24 Hours 03/30/24 03/31/24 04/01/24 23:59 23:59 23:59 Intake Total 800 / 800 1840 / 2160 440 / 440 Output Total 700 / 700 400 / 400 1200 / 1200 Balance 100 / 100 1440 / 1760 -760 / -760 Lab / Micro Data 04/01/24 06:03 03/28/24 06:43 Labs: Laboratory Results - last 24 hr 04/01/24 06:03: WBC 18.0 H, RBC 3.09 L, Hgb 9.8 L, Hct 29.9 L, MCV 96.8, MCH 31.7, MCHC 32.8 D, RDW Std Deviation 51.4 H, RDW Coeff of Nikia 14.7 H, Plt Count 329, MPV 11.6 Micro: Microbiology 04/01/24 08:10 Stool Stool Occult Blood (STAN) - Final Occult Blood Positive Assessment & Plan Assessment/Plan (1) UGI bleed: (2) Debility: (3) Pulmonary embolism: QUALIFIERS: Pulmonary embolism type: unspecified Chronicity: a cute Acute cor pulmonale presence: without acute cor pulmonale Qualified Code(s): I26.99 - Other pulmonary embolism without acute cor pulmonale (4) DVT (deep venous thrombosis): QUALIFIERS: DVT location: lower extremity Affected thrombotic vein of extremity: unspecified lower extremity proximal vein Chronicity: acute Laterality: left Qualified Code(s): I82.4Y2 - Acute embolism and thrombosis of unspecified deep veins of left proximal lower extremity (5) S/P lumbar fusion: (6) Acute blood loss as cause of postoperative anemia: (7) Chronic anticoagulation: PLAN: Plan 1. Hold any further therapy today. 2. Recheck a HGB now. 3. Type and crossmatch for blood 4. Consult Dr. Herbert 5. NPO 6. change the Protonix to IV 40 mg Q 12H 7. Zofran 4 mg IV every 6 hours as needed nausea/vomiting Charges/Coding Visit Charges Inpatient E&M: 06917 Subs Hosp L2
[2024-04-01] MEDS: 0.9% Normal Saline (1000mL) 1,000 ML 100 ML IV (12:18)
[2024-04-01] MEDS: Pantoprazole Sodium 40 MG in 0.9% Normal Saline (100mL MB+) 100 ML 330 MG IV ×2 (12:19→21:16)
[2024-04-01] MEDS: Ondansetron 4 MG/2 ML Vial IV (12:22)
[2024-04-01] MEDS: 0.9% Saline Lock 10 ML Syringe IV ×4 (12:24→21:33)
[2024-04-01 12:37] LABS: Hematocrit 27.1 % (37-47)
--- NOTE | 2024-04-01 15:14 | EX.PCM.CON.G ---
HPI Consult Data Date of Consult: 04/01/24 HPI Narrative Reason for Consultation: GI bleed HPI Narrative: SUNNY CHIRINOS, is a 73 YO F with a PMH of generalized anxiety disorder with panic attacks/depression. Recently started on duloxetine for chronic pain), gout, pharyngeal esophageal dysphagia, GERD, osteoarthritis and lumbar radiculopathy/neurogenic claudication. She underwent a transforaminal lumbar interbody fusion on 03/14/24. She was discharged home but developed pain in her feet/calves and poor appetite and saw her PCP on 03/21/2024. Lab work was done and was notable for a white blood cell count of 28,000, sodium of 127 and a creatinine of 2.1. She was sent to the local emergency department at the advice of her PCP and her blood pressure was 70s over 50s. Serum lactate was elevated at 2.9. W/U was + for BL PE's and DVT of the left femoral, popliteal, gastrocnemius and tibial peroneal veins. There was no evidence of right heart strain. She was hydrated and started on IV vancomycin/cefepime. She was admitted to [facility]. She was initiated on a heparin infusion and later transitioned to Xarelto. Empiric antibiotics were stopped when the patient presented to [facility]. She was transferred to the acute inpt rehab unit at [facility] on 03/27/24 for 3 hours of therapy daily to restore function/independence at or near her baseline. I was asked to see her due to the fact that she had multiple episodes of hematemesis this morning. She does complain of some epigastric pain Nonradiating. Her blood pressure has been stable. The white blood cell count is 13 with 72% neutrophils and 4.4% immature granulocytes. Platelets are within normal limits. Hemoglobin is 9.1 with an MCV of 99.3 and an elevated RDW. Sodium is 137 and the potassium is 4.2. Serum bicarb is normal. The BUN is 12 with a creatinine of 0.96 and a creatinine clearance of 64. Uric acid is 2.5. Phosphorus is 3.6 and the magnesium is borderline low at 1.7. LFTs are unremarkable. [facility] Medical History (Updated 04/01/24 @ 11:[address] Liz Parsons DO) History of gout Osteoarthritis Anxiety and depression Morbid obesity with BMI of 40.0-44.9, adult Ventral hernia without obstruction or gangrene Neurogenic claudication due to lumbar spinal stenosis Spondylolisthesis High cholesterol Chronic pain Hypertension DVT (deep venous thrombosis) Pulmonary embolism GERD (gastroesophageal reflux disease) Home Medications ?Medication ?Instructions ?Recorded ?Last Taken ?Type acetaminophen 500 mg capsule 1,000 mg PO Q8 Pain 03/27/24 03/26/24 History allopurinol 300 mg tablet 300 mg PO DAILY Gout 03/27/24 03/27/24 History amlodipine 5 mg-benazepril 20 mg 1 cap PO DAILY BP 03/27/24 Unknown History capsule duloxetine 20 mg capsule,delayed 20 mg PO QHS Back pain 03/27/24 03/26/24 History release (Cymbalta) pantoprazole 40 mg tablet,delayed 40 mg PO DAILY GERD 03/27/24 03/27/24 History release pregabalin 75 mg capsule 75 mg PO BID Spinal stenosis 03/27/24 Unknown History rivaroxaban 15 mg tablet 15 mg PO BID Blood thinner 03/27/24 03/27/24 History rivaroxaban 20 mg tablet 20 mg PO DAILY Blood thinner 03/27/24 Unknown History rosuvastatin 10 mg tablet 10 mg PO DAILY Cholestrol 03/27/24 03/27/24 History Allergy/AdvReac Type Severity Reaction Status Date / Time Penicillins AdvReac Unknown Other Verified 04/01/24 14:59 Sulfa (Sulfonamide AdvReac Unknown Rash Verified 04/01/24 14:59 Antibiotics) (sulfa drugs) Family History (Updated 03/28/24 @ 15:[address] Liz Parsons DO) Mother Breast cancer Heart disease Mother had atrial fibrillation. She passed at the age of 89 after a fall. Father CVA (cerebral vascular accident) Cancer Prostate Brother Degenerative disc disease Has had surgery on the cervical spine and the lumbar spine. Sister No problems noted. Surgical History History of removal of ovarian cyst Hx of cholecystectomy H/O adenoidectomy History of tonsillectomy Hx of total knee arthroplasty S/P lumbar fusion Social History (Updated 03/28/24 @ 15:[address] Liz Parsons DO) household members: spouse housing: other details: [place]. One-step to enter house number of children: 3 pets and animals: No Smoking Status: Never smoker alcohol intake: current alcohol intake frequency: a few times a month Alcohol type: beer substance use type: does not use ROS Constitutional Constitutional: Reports fatigue; Denies anorexia, change in weight, chills, fever(s), night sweats or weakness Eyes Eyes: Denies blurry vision, change in vision, eye pain or loss of vision ENT HEENT: Denies abnormal hearing, dysphagia, headache(s), hearing loss, nasal congestion or sore throat Cardiovascular Cardiovascular: Denies chest pain, dyspnea on exertion, edema, lightheadedness, orthopnea, palpitations, paroxysmal nocturnal dyspnea or syncope Respiratory/Chest Respiratory/Chest: Denies cough, dyspnea, shortness of breath at rest, shortness of breath with exertion or wheezing Gastrointestinal Gastrointestinal: Denies abdominal pain, constipation, diarrhea, dyspepsia, hematemesis, hematochezia, nausea or vomiting Genitourinary Genitourinary: Denies dysuria, hematuria, nocturia, urinary frequency, urinary hesitancy, urinary incontinence or urinary urgency Musculoskeletal Musculoskeletal: Reports back pain, extremity pain, radiating pain into limb and stiffness; Denies joint pain, joint swelling or neck pain Integumentary Integumentary: Reports other Details: Surgical incision over lumbar spine ; Denies alopecia, changing lesions, jaundice, pruritus or rash Neurologic Neurologic: Reports radicular pain and other Details: Radicular pain, primarily into the right lower extremity ; Denies confusion, disequilibrium, dizziness, focal weakness, headache(s), paresthesias, seizures or tremor(s) Psychiatric Psychiatric: Denies anxiety, depression, homicidal ideation or suicidal ideation Endocrine Endocrinology: Denies change in body appearance, polydipsia or polyuria Hematologic/Lymphatic Hematologic/Lymphatic: Denies easy bleeding, easy bruising or lymphadenopathy Allergic/Immunologic Allergic/Immunologic: Denies rhinitis, eczemia or asthma Physical Exam Const alert, oriented x3 and no apparent distress General Appearance: cooperative Resp clear to auscultation bilaterally Effort and Inspection: Negative for tachypneic Cardio regular rate and regular rhythm Cardio Narrative: No ectopy GI normal to inspection, nondistended, normoactive bowel sounds, soft to palpation and non-tender Extremity no calf tenderness General Extremity: edema Skin Skin Narrative: Every other staple was removed yesterday. The incision is intact but, there is a small area at the distal pole of the incision that had a small amount of dehiscence. This area is healing. No hannah-incisional erythema and no DC from the wound today. Due to body habitus there is a fair amount of tension on the margins of the incision. Will re-evaluate Thursday and possibly remove more konstantin at that time. General Skin Exam: no breakdown Rashes: no rashes Psych affect normal Lab / Micro Data 04/01/24 12:19 03/28/24 06:43 Labs: Laboratory Results - last 24 hr 04/01/24 06:03: WBC 18.0 H, RBC 3.09 L, Hgb 9.8 L, Hct 29.9 L, MCV 96.8, MCH 31.7, MCHC 32.8 D, RDW Std Deviation 51.4 H, RDW Coeff of Nikia 14.7 H, Plt Count 329, MPV 11.6 04/01/24 12:19: Hgb 9.0 L, Hct 27.1 L, Blood Type A POSITIVE, Antibody Screen NEGATIVE, Crossmatch See Detail Micro: Microbiology 04/01/24 08:10 Stool Stool Occult Blood (STAN) - Final Occult Blood Positive Assessment & Plan Assessment/Plan (1) UGI bleed: (2) Debility: (3) Pulmonary embolism: QUALIFIERS: Pulmonary embolism type: unspecified Chronicity: acute Acute cor pulmonale presence: without acute cor pulmonale Qualified Code(s): I26.99 - Other pulmonary embolism without acute cor pulmonale (4) DVT (deep venous thrombosis): QUALIFIERS: DVT location: lower extremity Affected thrombotic vein of extremity: unspecified lower extremity proximal vein Chronicity: acute Laterality: left Qualified Code(s): I82.4Y2 - Acute embolism and thrombosis of unspecified deep veins of left proximal lower extremity (5) S/P lumbar fusion: (6) Acute blood loss as cause of postoperative anemia: (7) Chronic anticoagulation: PLAN: Plan -Patient will undergo an upper endoscopy for upper GI bleed. She was explained alternatives, risk, benefits include not withstanding bleeding, infection, sepsis, perforation, need for emergent surgery and . She will have an ASA of 3. -continue Protonix to IV 40 mg Q 12H and Zofran 4 mg IV every 6 hours as needed nausea/vomiting Charges/Coding Visit Charges Inpatient E&M: 62040 Init Hosp L2
--- NOTE | 2024-04-01 15:18 | PCM.PRE.AN2 ---
ASA Classification* ASA Classification ASA Classification: 3 Assessment & Plan Anesthesia* Anesthesia Assessment Anesthesia Assessment: Discussed sedation and/or anesthesia options, risks, benefits, and alternatives with patient/parents/legal guardian/POA. Questions invited. The patient/parents/legal guardian/POA seems to understand and agrees to proceed with anesthesia plan. Reviewed the physical assessment, medical history, allergy history and patient home medications list prior to surgery/procedure/anesthetic and documented any changes. Performed airway and anesthesia risk assessments. Anesthesia Type Anesthesia Type: MAC History Source History Obtained from:: Patient and Chart Anesthesia Focused Assessment* Temperature: 98.1 F Pulse Rate: 85 Blood Pressure: 116/44 Respiratory Rate: 12 Pulse Ox: 99 Oxygen Delivery Method: Room Air Fraction of Inspired Oxygen (FIO2): 21 Airway Assessment Mouth opens: >3 cm Mallampati Score: III Teeth Condition: Missing (Patient is a few missing teeth. Rest are tight) Neck Range of motion (ROM): Full ROM Focused Labs Anesthesia Preop lab: CBC WBC 18.0 K/mm3 (4.4-11.0) H 04/01/24 06:03 RBC 3.09 M/mm3 (4.2-5.4) L 04/01/24 06:03 Hgb 9.0 g/dL (12.0-15.0) L 04/01/24 12:19 Hct 27.1 % (37-47) L 04/01/24 12:19 Plt Count 329 K/mm3 (150-450) 04/01/24 06:03 CHEMISTRY Potassium 4.2 mmol/L (3.5-5.1) 03/28/24 06:43 Sodium 137 mmol/L (136-145) 03/28/24 06:43 Magnesium 1.7 mg/dL (1.6-2.6) 03/28/24 06:43 Phosphorus 3.6 mg/dL (2.5-4.9) 03/28/24 06:43 BUN 12 mg/dL (7-18) 03/28/24 06:43 Creatinine 0.96 mg/dL (0.55-1.02) 03/28/24 06:43 Glucose 75 mg/dL (74-106) 03/28/24 06:43 COAG Pre-Assessment Diagnosis/Proposed Procedure Planned Operative Procedure(s): Esophagogastroduodenoscopy with possible biopsy Anesthesia History Anesthesia 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 When Was Last Pacemaker Check QUESTION #4 FULL TEXT: You/Your Family Experience fever (hyperthermia) with Anesthesia Last Oral Intake Last Oral intake: Last Oral Intake NPO since 10:15 04/01/24 15:00 Meds taken in AM with sips of Yes 04/01/24 15:00 water? 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 engineer Female HX of Motion Sickness HX of N/V After Surgery Non-Smoker Duration of Surgery greater than 60 minutes Number of Risk Factors PONV Score Height & Weight Height & Weight: Anesthesia: Height & Weight Height 5 ft 3 in 04/01/24 15:00 Weight: 109.3 kg 04/01/24 15:00 Body Mass Index (BMI) 42.7 04/01/24 15:00 Respiratory Assessment Respiratory Assessment - senior linux unix engineer: Respiratory Tract Infection Hx - senior linux unix engineer Hx Respiratory Tract Infection Any additional information?: Yes Hx Respiratory Tract Infection: No STOP Sleep Apnea STOP Sleep Apnea - senior linux unix engineer: STOP Sleep Apnea - senior linux unix engineer Hx Hypertension Yes 03/28/24 10:09 Hx Sleep Apnea No 03/27/24 13:27 CPAP BIPAP Do you snore loudly (louder Yes 03/27/24 13:27 than talking or can be heard Do you often feel tired/ No 03/27/24 13:27 fatigued/ sleepy during daytime? Has anyone observed you stop No 03/27/24 13:27 breathing during sleep? STOP Results Positive 03/27/24 13:27 QUESTION #5 FULL TEXT : Do you snore loudly (louder than talking or can be heard through closed doors)? 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 Specify any problems Hx of Preganancy in last 3 N/A 03/27/24 13:27 Months Nurse Filling Out Transfusion PSTETLER 03/27/24 13:27 & Questions: Date: 03/27/24 03/27/24 13:27 Time: 14:23 03/27/24 13:27 Patient unable to answer at this time (ie. confused, unrespo /Reproduction History /Reproductive History - senior linux unix engineer: /Reproductive Hx- senior linux unix engineer Hx Now Gestational Age (in weeks): EDC: Hx Hx Para Hx Section SAB Active Medications Active Medications: Current Medications Generic Name Dose Route Start Last Admin Trade Name Freq PRN Reason Stop Dose Admin Acetaminophen 1,000 mg 03/27/24 14:00 04/01/24 13:25 Acetaminophen 500 Mg Tablet PO 1,000 mg Q8 ELSA Administration Allopurinol 300 mg 03/28/24 10:00 04/01/24 10:14 Allopurinol 300 Mg Tablet PO 300 mg DAILY ELSA Administration Amlodipine Besylate 5 mg 03/28/24 10:00 04/01/24 10:13 Amlodipine 5 Mg Tablet PO 5 mg DAILY ELSA Administration Ascorbic Acid 500 mg 03/29/24 17:00 04/01/24 10:13 Ascorbic Acid 500 Mg Tablet PO 500 mg BIDCM ELSA Administration Atorvastatin Calcium 20 mg 03/27/24 22:00 03/31/24 20:57 Atorvastatin Calcium 20 Mg Tablet PO 20 mg QHS ELSA Administration Bisacodyl 10 mg 03/27/24 13:53 Bisacodyl 10 Mg Suppository RC X1 PRN Constipation Duloxetine HCl 20 mg 03/27/24 22:00 03/31/24 20:57 Duloxetine Hcl 20 Mg Capsule PO 20 mg QHS ELSA Administration Sodium Chloride 1,000 mls @ 100 mls/hr 04/01/24 11:05 04/01/24 14:09 IV 04/01/24 21:04 0 mls/hr .Q10H ELSA Infusion Protocol Pantoprazole Sodium 40 mg/ 110 mls @ 330 mls/hr 04/01/24 11:20 04/01/24 12:40 Sodium Chloride IV Infused Q12 ELSA Infusion Lisinopril 20 mg 03/28/24 10:00 04/01/24 10:13 Lisinopril 20 Mg Tablet PO 20 mg DAILY ELSA Administration Magnesium Hydroxide 30 ml 03/27/24 13:53 Magnesium Hydroxide 30 Ml Udc PO X1 PRN Constipation Ondansetron HCl 4 mg 04/01/24 11:04 04/01/24 12:22 Ondansetron 4 Mg/2 Ml Vial IV 4 mg Q6H PRN PRN Administration NAUSEA/VOMITING Oxycodone HCl 5 mg 03/28/24 15:24 03/30/24 12:08 Oxycodone 5 Mg Tablet PO 5 mg Q4H PRN PRN Administration Pain Score 4-10 Pregabalin 75 mg 03/27/24 22:00 04/01/24 10:15 Pregabalin 75 Mg Capsule PO 75 mg BID ELSA Administration Rivaroxaban 15 mg 03/27/24 22:00 04/01/24 10:13 Rivaroxaban 15 Mg Tablet PO 04/14/24 22:01 15 mg BID ELSA Administration Rivaroxaban 20 mg 04/15/24 17:00 Rivaroxaban 20 Mg Tablet PO DINNER ELSA Senna/Docusate Sodium 2 tablet 03/27/24 22:00 04/01/24 10:13 Senna/Docusate Sodium 1 Tablet PO 2 tablet BID ELSA Administration Sodium Chloride 10 - 40 ml 04/01/24 11:47 04/01/24 12:24 0.9% Saline Lock 10 Ml Syringe IV 10 ml UD PRN Administration SALINE FLUSH Vitamin E 400 units 03/29/24 13:30 04/01/24 10:12 Vitamin E 400 Units Capsule PO 400 units DAILYCM ELSA Administration [facility] Medical History (Updated 04/01/24 @ 11:[address] Liz Parsons DO) History of gout Osteoarthritis Anxiety and depression Morbid obesity with BMI of 40.0-44.9, adult Ventral hernia without obstruction or gangrene Neurogenic claudication due to lumbar spinal stenosis Spondylolisthesis High cholesterol Chronic pain Hypertension DVT (deep venous thrombosis) Pulmonary embolism GERD (gastroesophageal reflux disease) Home Medications ?Medication ?Instructions ?Recorded ?Last Taken ?Type acetaminophen 500 mg capsule 1,000 mg PO Q8 Pain 03/27/24 03/26/24 History allopurinol 300 mg tablet 300 mg PO DAILY Gout 03/27/24 03/27/24 History amlodipine 5 mg-benazepril 20 mg 1 cap PO DAILY BP 03/27/24 Unknown History capsule duloxetine 20 mg capsule,delayed 20 mg PO QHS Back pain 03/27/24 03/26/24 History release (Cymbalta) pantoprazole 40 mg tablet,delayed 40 mg PO DAILY GERD 03/27/24 03/27/24 History release pregabalin 75 mg capsule 75 mg PO BID Spinal stenosis 03/27/24 Unknown History rivaroxaban 15 mg tablet 15 mg PO BID Blood thinner 03/27/24 04/01/24 History rivaroxaban 20 mg tablet 20 mg PO DAILY Blood thinner 03/27/24 Unknown History rosuvastatin 10 mg tablet 10 mg PO DAILY Cholestrol 03/27/24 03/27/24 History Allergy/AdvReac Type Severity Reaction Status Date / Time Penicillins AdvReac Unknown Other Verified 04/01/24 14:59 Sulfa (Sulfonamide AdvReac Unknown Rash Verified 04/01/24 14:59 Antibiotics) (sulfa drugs) Family History (Updated 03/28/24 @ 15:[address] Liz Parsons DO) Mother Breast cancer Heart disease Mother had atrial fibrillation. She passed at the age of 89 after a fall. Father CVA (cerebral vascular accident) Cancer Prostate Brother Degenerative disc disease Has had surgery on the cervical spine and the lumbar spine. Sister No problems noted. Surgical History History of removal of ovarian cyst Hx of cholecystectomy H/O adenoidectomy History of tonsillectomy Hx of total knee arthroplasty S/P lumbar fusion Social History (Updated 03/28/24 @ 15:[address] Liz Parsons DO) household members: spouse housing: other details: [place]. One-step to enter house number of children: 3 pets and animals: No Smoking Status: Never smoker alcohol intake: current alcohol intake frequency: a few times a month Alcohol type: beer substance use type: does not use Review of Systems (Anesthesia) ROS Narrative System reviewed and no additional complaints, except as documented.
--- NOTE | 2024-04-01 16:11 | OP.EGD_ITS ---
Patient Name: Stefanie Taylor Procedure Date: 04/01/2024 3:34 PM Date of : 1950 Age: 73 Procedure: Upper GI endoscopy Indications: Epigastric abdominal pain, Hematemesis Providers: Ang Herbert DO Medicines: Monitored Anesthesia Care Patient Profile: This is a 73 year old female. Refer to note in patient chart for documentation of history and physical. Patient has symptoms of acute nausea and acute vomiting. Complications: No immediate complications. Procedure: Pre-Anesthesia Assessment: - Prior to the procedure, a History and Physical was performed, and patient medications and allergies were reviewed. The patient is competent. The risks and benefits of the procedure and the sedation options and risks were discussed with the patient. All questions were answered and informed consent was obtained. Patient identification and proposed procedure were verified by the physician in the pre-procedure area. Mental Status Examination: alert and oriented. Airway Examination: normal oropharyngeal airway and neck mobility. Respiratory Examination: clear to auscultation. CV Examination: normal. Prophylactic Antibiotics: The patient does not require prophylactic antibiotics. Prior Anticoagulants: The patient has taken no anticoagulant or antiplatelet agents except for NSAID medication. ASA Grade Assessment: II - A patient with mild systemic disease. After reviewing the risks and benefits, the patient was deemed in satisfactory condition to undergo the procedure. The anesthesia plan was to use monitored anesthesia care (MAC). Immediately prior to administration of medications, the patient was re-assessed for adequacy to receive sedatives. The heart rate, respiratory rate, oxygen saturations, blood pressure, adequacy of pulmonary ventilation, and response to care were monitored throughout the procedure. The physical status of the patient was re-assessed after the procedure. After obtaining informed consent, the endoscope was passed under direct vision. Throughout the procedure, the patient's blood pressure, pulse, and oxygen saturations were monitored continuously. The Endoscope was introduced through the mouth, and advanced to the second part of duodenum. The upper GI endoscopy was accomplished without difficulty. The patient tolerated the procedure well. Scope In: 3:50:08 PM Scope Out: 4:02:25 PM Total Procedure Duration Time 0 hours 12 minutes 17 seconds Findings: LA Grade D (one or more mucosal breaks involving at least 75% of esophageal circumference) esophagitis with bleeding was found 34 to 42 cm from the incisors. Coagulation for hemostasis using heater probe was successful. Estimated blood loss was minimal. A small hiatal hernia was present. A large amount of food (residue) was found in the gastric body. Hematin (altered blood/ypkrjc-fhwvae-zisa material) was found in the stomach. One oozing cratered gastric ulcer with a visible vessel was found in the gastric body. The lesion was 6 mm in largest dimension. Coagulation for hemostasis using heater probe was successful. Estimated blood loss was minimal. No gross lesions were noted in the second portion of the duodenum. Impression: - LA Grade D erosive esophagitis with bleeding. Treated with a heater probe. - Small hiatal hernia. - A large amount of food (residue) in the stomach. - Hematin (altered blood/gpejpm-yfhwhk-wyga material) in the stomach. - Oozing gastric ulcer with a visible vessel. Treated with a heater probe. - No gross lesions in the second portion of the duodenum. - No specimens collected. -Ileus with gastroparesis likely secondary to lack of movement and medications Recommendation: - Full liquid diet. - Continue present medications. -Metoclopramide 10 mg IV every 6 hours -Senna 2 tabs p.o. daily -Azithromycin 500 mg IV daily to increase small bowel motility Procedure Code(s): --- Professional --- 65099, Esophagogastroduodenoscopy, flexible, transoral; with control of bleeding, any method CPT copyright 2021 [employer]. All rights reserved. The codes documented in this report are preliminary and upon surgical coder review may be revised to meet current compliance requirements. Ang Herbert DO 04/01/2024 4:11:03 PM This report has been signed electronically. Number of Addenda: 0 Note Initiated On: 04/01/2024 3:34 PM
--- NOTE | 2024-04-01 16:11 | OP.CCLET_ITS ---
04/01/2024 Raffaele Rodriges Md Re : Upper GI endoscopy procedure for Stefanie Taylor Dear Dr. Rodriges This procedure was performed on Monday, April 01, 2024. My impressions and recommendations are as follows: Impressions : - LA Grade D erosive esophagitis with bleeding. Treated with a heater probe. - Small hiatal hernia. - A large amount of food (residue) in the stomach. - Hematin (altered blood/implvp-kzzsbd-vkmr material) in the stomach. - Oozing gastric ulcer with a visible vessel. Treated with a heater probe. - No gross lesions in the second portion of the duodenum. - No specimens collected. -Ileus with gastroparesis likely secondary to lack of movement and medications Recommendations : - Full liquid diet. - Continue present medications. -Metoclopramide 10 mg IV every 6 hours -Senna 2 tabs p.o. daily -Azithromycin 500 mg IV daily to increase small bowel motility My findings are described in the full procedure note, which is enclosed. If I can be of further assistance, please feel free to contact me at . Sincerely, Ang Herbert, 04/01/2024 4:11:03 PM This report has been signed electronically.
--- NOTE | 2024-04-01 16:12 | PCM.POST.ANE ---
Anesthesia: Postop Eval I Current Vital Signs Temperature: 97.5 F Pulse Rate: 81 Blood Pressure: 96/42 Respiratory Rate: 16 Pulse Ox: 99 Oxygen Delivery Method: Room Air Assessment Airway patent: Yes Spontaneous unlabored respirations: Yes Mental status: Awake and Calm nausea: No Vomiting: No Anesthesia Complication: No Fluid Hydration Crystalloid volume administer (ml): 30 Total IV fluid infused: 30 Progress Note Anesthesia document: Postop Eval 1 completed: Yes
[2024-04-01] MEDS: Azithromycin 500 MG in Dextrose 5%-Water (250mL Bag) 250 ML 250 MG IV (16:54)
--- NOTE | 2024-04-01 17:21 | PCM.POSTANE2 ---
Anesthesia Postop Eval I Sum Postop Eval Completion status Anesthesia document: Postop Eval 1 completed: Yes Anesthesia Postop Eval I Summary Anesthesia Postop Eval I Summary: Anesthesia Postop Eval I: Assessment Summary Airway patent Yes 04/01/24 16:13 [email or web address] Spontaneous unlabored Yes 04/01/24 16:13 [email or web address] respirations Mental status Awake,Calm 04/01/24 16:13 [email or web address] nausea No 04/01/24 16:13 [email or web address] Vomiting No 04/01/24 16:13 [email or web address] Anesthesia Postop Eval I: Fluid Summary Crystalloid volume administer 30 04/01/24 16:13 [email or web address] (ml) Colloids volume administered ( ml) Blood Product volume administered (ml) Total IV fluid infused 30 04/01/24 16:13 [email or web address] Anesthesia Postop Eval I: Summary Notes Anesthesia Complication No 04/01/24 16:13 [email or web address] Anesthesia Complication Comment: Post-operative progress note Anesthesia: Postop Eval II Evaluation Mental status: Awake and Calm Pain Level: 0 nausea: No Vomiting: No
[2024-04-01] MEDS: Metoclopramide 10 MG/2 ML Vial IV (17:59)
[2024-04-01 20:35] LABS: Hemoglobin 8.3 g/dL (12.0-15.0)
--- NOTE | 2024-04-01 20:55 | NURSING ---
2024 Patient bp 93/32. Patient asymptomatic. Notified Dr. Parsons of low bp. Order received for 0.9% Normal Saline 1 Liter to infuse over 2 hours.
[2024-04-01] MEDS: Atorvastatin Calcium 20 MG Tablet PO (21:13)
[2024-04-01] MEDS: DULoxetine Hcl 20 MG Capsule PO (21:13)
[2024-04-01] MEDS: 0.9% Normal Saline (1000mL) 1,000 ML 500 ML IV (21:30)
--- NOTE | 2024-04-01 21:35 | NURSING ---
2127 Dr. Parsons aware of Hgb 8.3. Transfuse 1 unit PRBCs and recheck H&H in 1 hour.
[2024-04-01] MEDS: 0.9% Normal Saline (500mL Bag) 500 ML 15 ML IV (23:20)
[2024-04-02] VITALS (8 sets, daily range): BP systolic 99–149; BP diastolic 40–54; PULSE 73–93; RESP 15–16; TEMP 36.2–36.6; O2SAT 94–97
[2024-04-02] MEDS: Metoclopramide 10 MG/2 ML Vial IV ×4 (01:15→16:49)
[2024-04-02 02:20] LABS: Hematocrit 26.4 % (37-47); Hemoglobin 8.7 g/dL (12.0-15.0)
[2024-04-02 04:51] LABS: Hematocrit 26.3 % (37-47); Hemoglobin 8.6 g/dL (12.0-15.0)
[2024-04-02] MEDS: 0.9% Saline Lock 10 ML Syringe IV ×4 (06:32→21:43)
[2024-04-02] MEDS: Acetaminophen 500 MG Tablet 1000 MG PO ×3 (06:32→21:13)
[2024-04-02 07:01] LABS: Hemoglobin 10.6 g/dL (12.0-15.0)
--- NOTE | 2024-04-02 07:07 | NURSING ---
0701 Dr. Parsons phones and is updated on patient condition.
[2024-04-02] MEDS: Vitamin E 400 UNITS Capsule PO (08:25)
[2024-04-02] MEDS: Allopurinol 300 MG Tablet PO (08:25)
[2024-04-02] MEDS: Ascorbic Acid 500 MG Tablet PO ×2 (08:25→16:48)
[2024-04-02] MEDS: Pantoprazole Sodium 40 MG in 0.9% Normal Saline (100mL MB+) 100 ML 330 MG IV ×2 (08:26→21:43)
--- NOTE | 2024-04-02 09:25 | PN_ITS ---
Subjective Subjective Afebrile VSS -blood pressure yesterday evening dropped into the 90s systolic but has recovered with hydration and 1 unit of packed red blood cells. Heart rate is within normal limits. Maintaining appropriate oxygen saturation on RA Oral intake - FOOD poor for the past 24-48 hours FLUIDS poor oral fluid intake yesterday. Received IV fluids and 1 unit of packed red blood cells. Overnight the fluid balance was +[id number]. Discussed with nursing - no problems that need addressed Reviewed the THERAPY notes Medication list reviewed. Hemoglobin this morning is 10.6, up from 8.3 last evening. Denies lightheadedness, nausea, heartburn, abdominal pain, dysuria and calf pain. Also denies chest pain and shortness of breath. Objective Data Objective Data Vital Signs: Vital Signs Temp Pulse Resp BP Pulse Ox O2 Del Method FiO2 97.9 F 83 16 106/52 L 97 Room Air 21 04/02/24 06:40 04/02/24 06:40 04/02/24 06:40 04/02/24 06:40 04/02/24 06:40 04/02/24 06:50 04/01/24 15:20 Oxygen Delivery Method Room Air Weight: 240 lb 15.444 oz Body Mass Index (BMI) 42.7 Intake & Output: Intake and Output for Last 24 Hours 03/31/24 04/01/24 04/02/24 23:59 23:59 23:59 Intake Total 1840 / 2160 2100 / 2100 4683.25 / 4683.25 Output Total 400 / 400 1450 / 1450 1999 / 1999 Balance 1440 / 1760 650 / 650 2683.25 / 2683.25 Lab / Micro Data 04/04/24 05:31 04/04/24 05:31 Labs: Laboratory Results - last 24 hr 04/01/24 12:19: Hgb 9.0 L, Hct 27.1 L, Blood Type A POSITIVE, Antibody Screen NEGATIVE, Crossmatch See Detail 04/01/24 19:50: Hgb 8.3 L, Hct 25.0 L 04/02/24 02:15: Hgb 8.7 L, Hct 26.4 L 04/02/24 03:50: Hgb 8.6 L, Hct 26.3 L 04/02/24 06:23: Hgb 10.6 L, Hct 32.0 L Micro: Microbiology 04/01/24 08:10 Stool Stool Occult Blood (STAN) - Final Occult Blood Positive Physical Exam Const alert, oriented x3 and no apparent distress General Appearance: cooperative HEENT moist oral mucous membranes Resp normal respiratory effort and clear to auscultation bilaterally Cardio regular rate, regular rhythm and no gallops GI GI Narrative: The abdomen is soft and she had no guarding with palpation. Bowel sounds are not hyperactive. Extremity General Extremity: Negative for edema Skin Skin Narrative: Skin is dry without diaphoresis. No breakdown. No rashes. Psych affect normal Assessment & Plan Assessment/Plan (1) UGI bleed: (2) Debility: (3) Pulmonary embolism: QUALIFIERS: Pulmonary embolism type: unspecified Chronicity: a cute Acute cor pulmonale presence: without acute cor pulmonale Qualified Code(s): I26.99 - Other pulmonary embolism without acute cor pulmonale (4) DVT (deep venous thrombosis): QUALIFIERS: DVT location: lower extremity Affected thrombotic vein of extremity: unspecified lower extremity proximal vein Chronicity: acute Laterality: left Qualified Code(s): I82.4Y2 - Acute embolism and thrombosis of unspecified deep veins of left proximal lower extremity (5) S/P lumbar fusion: (6) Acute blood loss as cause of postoperative anemia: (7) Chronic anticoagulation: (8) Hypotension: QUALIFIERS: Hypotension type: unspecified hypotension type Q ualified Code(s): I95.9 - Hypotension, unspecified PLAN: Due to acute blood loss and dehydration. Resolved with fluids and 1 unit of packed red blood PLAN: Plan 1. Continue therapy 2. No need for blood products today. 3. Continue intravenous pantoprazole, azithromycin and Reglan. Will discuss with Dr. Herbert on Thursday when to transition to oral medications. 4. Start Lovenox 1 mg/kg SQ every 12 hours and continue to hold Xarelto 5. HH and BMP in the a.m. Charges/Coding Visit Charges Inpatient E&M: 77038 Subs Hosp L2
[2024-04-02] MEDS: Pregabalin 75 MG Capsule PO ×2 (10:57→21:13)
[2024-04-02] MEDS: Azithromycin 500 MG in Dextrose 5%-Water (250mL Bag) 250 ML 250 MG IV (10:58)
[2024-04-02] MEDS: Enoxaparin 120 MG/0.8 ML Syringe 110 MG SC (16:48)
[2024-04-02] MEDS: DULoxetine Hcl 20 MG Capsule PO (21:13)
[2024-04-02] MEDS: Atorvastatin Calcium 20 MG Tablet PO (21:13)
[2024-04-03] MEDS: Metoclopramide 10 MG/2 ML Vial IV ×4 (00:34→18:20)
[2024-04-03] MEDS: 0.9% Saline Lock 10 ML Syringe IV ×4 (00:34→18:20)
[2024-04-03 05:52] LABS: Hematocrit 26.7 % (37-47); Hemoglobin 8.7 g/dL (12.0-15.0); Mean Corp Hgb Conc 32.6 g/dL (32-36); Mean Corpuscular Hgb 30.5 pg (27.0-32.0); Mean Corpuscular Volume 93.7 fL (81-99); Mean Platelet Vol. 12.1 fl (6.2-12.0); Platelet Count 218 K/mm3 (150-450); RBC Distribution Width CV 16.8 % (11.6-14.6); RBC Distribution Width SD 57.8 fl (35.1-43.9); Red Blood Count 2.85 M/mm3 (4.2-5.4); White Blood Count 16.2 K/mm3 (4.4-11.0)
[2024-04-03 06:09] LABS: Anion Gap 5 (5-15); BUN 25 mg/dL (7-18); BUN/Creat Ratio 24.3 RATIO (10-20); Calcium,Total 8.1 mg/dL (8.5-10.1); Chloride 100 mmol/L (98-107); Creatinine, Serum 1.03 mg/dL (0.55-1.02); EST Glomerular Filtration Rate 56 mL/min (>60); Est Glom Filt Rate - Afr Amer 68 mL/min (>60); Estimated Creatinine Clearance 59.44 ml/min; Glucose 86 mg/dL (74-106); Potassium 4.4 mmol/L (3.5-5.1); Sodium Level 129 mmol/L (136-145)
[2024-04-03] MEDS: Acetaminophen 500 MG Tablet 1000 MG PO ×3 (06:24→20:28)
[2024-04-03 06:43] VITALS: BP 106/48; PULSE 78; RESP 18; TEMP 36.6; O2SAT 94
[2024-04-03] MEDS: Vitamin E 400 UNITS Capsule PO (07:35)
[2024-04-03] MEDS: Ascorbic Acid 500 MG Tablet PO ×2 (07:35→16:55)
[2024-04-03] MEDS: Allopurinol 300 MG Tablet PO (07:35)
[2024-04-03] MEDS: Pantoprazole Sodium 40 MG in 0.9% Normal Saline (100mL MB+) 100 ML 330 MG IV ×2 (09:57→20:31)
[2024-04-03] MEDS: Pregabalin 75 MG Capsule PO ×2 (10:00→20:31)
[2024-04-03] MEDS: Azithromycin 500 MG in Dextrose 5%-Water (250mL Bag) 250 ML 250 MG IV (10:25)
[2024-04-03] MEDS: Enoxaparin 120 MG/0.8 ML Syringe 110 MG SC ×2 (11:24→20:27)
[2024-04-03 18:00] VITALS: BP 111/45; PULSE 81; RESP 16; TEMP 36.4; O2SAT 97
[2024-04-03 19:46] VITALS: BP 117/49; PULSE 74; RESP 16; TEMP 36.4; O2SAT 97
[2024-04-03] MEDS: DULoxetine Hcl 20 MG Capsule PO (20:27)
[2024-04-03] MEDS: Atorvastatin Calcium 20 MG Tablet PO (20:27)
[2024-04-04] MEDS: Metoclopramide 10 MG/2 ML Vial IV ×3 (00:54→12:47)
[2024-04-04] MEDS: 0.9% Saline Lock 10 ML Syringe IV ×4 (00:55→12:47)
[2024-04-04 06:00] VITALS: BP 164/76; PULSE 99; RESP 16; TEMP 36.4; O2SAT 95
[2024-04-04 06:02] LABS: Hemoglobin 8.9 g/dL (12.0-15.0); Mean Corp Hgb Conc 30.7 g/dL (32-36); Mean Corpuscular Hgb 29.7 pg (27.0-32.0); Mean Corpuscular Volume 96.7 fL (81-99); Mean Platelet Vol. 12.5 fl (6.2-12.0); Platelet Count 233 K/mm3 (150-450); RBC Distribution Width CV 17.2 % (11.6-14.6); White Blood Count 12.9 K/mm3 (4.4-11.0)
[2024-04-04 06:07] LABS: Scan Indicated on CBC? Y/N NO
[2024-04-04] MEDS: Acetaminophen 500 MG Tablet 1000 MG PO ×3 (06:09→21:01)
[2024-04-04 06:26] LABS: Anion Gap 5 (5-15); BUN 19 mg/dL (7-18); BUN/Creat Ratio 19.6 RATIO (10-20); Calcium,Total 8.7 mg/dL (8.5-10.1); Chloride 102 mmol/L (98-107); Creatinine, Serum 0.97 mg/dL (0.55-1.02); EST Glomerular Filtration Rate 60 mL/min (>60); Est Glom Filt Rate - Afr Amer 73 mL/min (>60); Estimated Creatinine Clearance 63.12 ml/min; Glucose 91 mg/dL (74-106); Potassium 4.6 mmol/L (3.5-5.1); Sodium Level 134 mmol/L (136-145)
[2024-04-04] MEDS: amLODIPine 5 MG Tablet PO (07:48)
[2024-04-04] MEDS: Lisinopril 20 MG Tablet PO (07:50)
[2024-04-04] MEDS: Vitamin E 400 UNITS Capsule PO (07:51)
[2024-04-04] MEDS: Enoxaparin 120 MG/0.8 ML Syringe 110 MG SC (07:51)
[2024-04-04] MEDS: Allopurinol 300 MG Tablet PO (07:52)
[2024-04-04] MEDS: Ascorbic Acid 500 MG Tablet PO ×2 (07:52→16:32)
[2024-04-04] MEDS: Pregabalin 75 MG Capsule PO (07:56)
--- NOTE | 2024-04-04 10:20 | PN_ITS ---
Subjective Subjective Afebrile VSS -blood pressure over the past 24 hours has ranged from 106/48 to 164/76 this morning. Maintaining appropriate oxygen saturation on RA Oral intake - FOOD eating 50 to 100% diet FLUIDS good Discussed with nursing - no problems that need addressed. Tolerating her diet with no nausea/vomiting/epigastric pain. No diarrhea. Having 1 formed bowel movement daily. Lovenox was started on Thursday and she is receiving 1 mg/kg SQ every 12 hours. Reviewed the THERAPY notes Medication list reviewed. All lab drawn this morning was personally reviewed. Hemoglobin is stable at 8.9. Platelets are within normal limits. Sodium is 134 today, up from 129 yesterday. I suspect the hyponatremia is due to intravenous fluids given for hypotension Thursday evening/Thursday morning. Potassium is normal at 4.6. The BUN is 19, down from 25 on 04/03/2024. Creatinine is 0.97 which is within her baseline. No pathology reports.. Kamala denies lightheadedness, N/V/abd pain/heartburn, dysuria, CP, SOB, palpitations and calf pain. Her biggest complaint is weakness which is worse since she had to have reduced therapy for a few days, coupled with an EGD, an acute UGI bleed requiring transfusion, gastric ulcer/erosive gastritis, hypotension, dehydration, hyponatremia and IV Azithromycin/Reglan for promotility due to retained food in the stomach with severe reflux. I pointed out to her that since 03/14/24 (3 weeks) she has had a lumbar fusion, DVT in the L leg, multiple BL PE's an acute UGI bleed, hypotension, etc. We have had a set back and I do not feel she will be ready to go home safely on 04/06/24. Objective Data Objective Data Vital Signs: Vital Signs Temp Pulse Resp BP Pulse Ox O2 Del Method FiO2 97.5 F L 99 16 164/76 H 95 Room Air 21 04/04/24 06:00 04/04/24 06:00 04/04/24 06:00 04/04/24 06:00 04/04/24 06:00 04/04/24 06:00 04/01/24 15:20 Oxygen Delivery Method Room Air Weight: 240 lb 15.444 oz Body Mass Index (BMI) 42.7 Intake & Output: Intake and Output for Last 24 Hours 04/02/24 04/03/24 04/04/24 23:59 23:59 23:59 Intake Total 6298.25 / 6298.25 3070 / 3470 840 / 840 Output Total 3400 / 3400 2150 / 2150 450 / 450 Balance 2898.25 / 2898.25 920 / 1320 390 / 390 Lab / Micro Data 04/04/24 05:31 04/04/24 05:31 Labs: Laboratory Results - last 24 hr 04/04/24 05:31: WBC 12.9 H, RBC 3.00 L, Hgb 8.9 L, Hct 29.0 L, MCV 96.7, MCH 29.7, MCHC 30.7 L D, RDW Std Deviation 60.0 H, RDW Coeff of Nikia 17.2 H, Plt Count 233, MPV 12.5 H, Sodium 134 L, Potassium 4.6, Chloride 102, Carbon Dioxide 27.0, Anion Gap 5, BUN 19 H, Creatinine 0.97, Estim Creat Clear Calc 63.12, Est GFR (MDRD) Af Amer 73, Est GFR (MDRD) Non-Af 60, BUN/Creatinine Ratio 19.6, Glucose 91, Calcium 8.7 Micro: Microbiology 04/01/24 08:10 Stool Stool Occult Blood (STAN) - Final Occult Blood Positive Physical Exam Const alert and oriented x3 Constitutional Narrative: Looks fatigued. Good color in her face today. General Appearance: cooperative HEENT Mouth: dry mucous membranes Resp normal respiratory effort, normal air movement and clear to auscultation bilaterally Effort and Inspection: Negative for tachypneic Cardio regular rhythm and no gallops Cardio Narrative: I saw her while she was in the therapy room and the resting HR was increased. NO gallop. No ectopy. GI GI Narrative: The abd is soft, NT, ND and the BS's are hypoactive. No c/o pain with palpation and no guarding. Extremity General Extremity: Negative for edema Skin General Skin Exam: no breakdown Rashes: no rashes Wound Narrative: The incision is intact with no dehiscence. There is no hannah-incisional erythema and no discharge from the wound. No significant hannah-incisional edema. She had no pain with palpation around the incision today. Psych cooperative and affect normal Assessment & Plan Assessment/Plan (1) Debility: (2) UGI bleed: (3) Hypotension: QUALIFIERS: Hypotension type: unspecified hypotension type Q ualified Code(s): I95.9 - Hypotension, unspecified PLAN: Due to acute blood loss secondary to upper GI bleed +/- dehydration due to poor intake (4) Gastric ulcer: QUALIFIERS: Gastric ulcer chronicity: acute Gastric ulcer complication status: with hemorrhage Qualified Code(s): K25.0 - Acute gastric ulcer with hemorrhage (5) Erosive esophagitis: (6) Delayed gastric emptying: (7) Acute blood loss anemia: PLAN: Acute blood loss secondary to gastric ulcer/erosive esophagitis/upper GI bleed on previous blood loss anemia secondary to lumbar fusion on 03/14/2024. Transfused with 1 unit of packed red blood cells for hypotension (8) Pulmonary embolism: QUALIFIERS: Pulmonary embolism type: unspecified Chronicity: a cute Acute cor pulmonale presence: without acute cor pulmonale Qualified Code(s): I26.99 - Other pulmonary embolism without acute cor pulmonale PLAN: Multiple bilateral pulmonary emboli following lumbar fusion on 03/14/2024. (9) DVT (deep venous thrombosis): QUALIFIERS: DVT location: lower extremity Affected thrombotic vein of extremity: unspecified lower extremity proximal vein Chronicity: acute Laterality: left Qualified Code(s): I82.4Y2 - Acute embolism and thrombosis of unspecified deep veins of left proximal lower extremity PLAN: Left leg, multiple deep veins. (10) S/P lumbar fusion: (11) Acute blood loss as cause of postoperative anemia: (12) Chronic anticoagulation: (13) Hyponatremia: (14) Dehydration: (15) GERD (gastroesophageal reflux disease): QUALIFIERS: Esophagitis presence: without esophagitis Qualified Code(s): K21.9 - Gastro-esophageal reflux disease without esophagitis PLAN: Plan 1. Continue therapy 2. Advance diet to soft with no caffeine 3. Restart Xarelto tonight, D/W pharm D. 4. Discussed with Dr. Herbert when we can transition to p.o. Protonix, Reglan and azithromycin. 5. Kamala is still on IV medications. I did not transfer her to the acute side of the hospital because I felt she could be managed on rehab if no further complications. Due to the GI bleed, blood loss, hypotension she was not able to do 3 hours of therapy a day for Thursday, Thursday and Thursday. She has increased fatigue/weakness today. I told her I recommend she stay on rehab at least until she is off IV medications and she has had a few more days of therapy prior to going home. I think a DC on Thursday would be possible. She will need to appeal to her insurance company for an extension. 6. HH in AM' I updated Pedro on the phone and answered his questions. Charges/Coding Visit Charges Inpatient E&M: 94753 Subs Hosp L1
[2024-04-04] MEDS: Pantoprazole Sodium 40 MG in 0.9% Normal Saline (100mL MB+) 100 ML 330 MG IV (10:40)
[2024-04-04] MEDS: 0.9% Normal Saline (500mL Bag) 500 ML 15 ML IV (10:43)
[2024-04-04] MEDS: Azithromycin 500 MG in Dextrose 5%-Water (250mL Bag) 250 ML 250 MG IV (11:20)
--- NOTE | 2024-04-04 15:26 | CASEMGMT ---
Social Work Dr Parsons spoke with this worker on request to extend pt's stay d/t having medical complications in the beginning of pt's stay, thus, delaying the optimal therapy improvement. is recommending pt DC home 04/10. reports she has spoken to the pt and the pt is agreeable. VIRGIL spoke with [employer] to inquire about extension and if an appeal through Medicare is needed. Director explained since this is a recommendation from the MD, the pt does not need to appeal and pt will not assume financial liability for the extended days. VIRGIL spoke with pt at bedside. Pt initially disappointed to learn of the new proposed DC date, but does agree with the Dr and trusts her opinion. Pt is agreeable to DC home 04/10. SW to fax referral to [facility] for PT. Plan: DC home with 04/10, [facility] outpatient PT TORITO SinghW
[2024-04-04] MEDS: Metoclopramide 10 MG Tablet PO ×2 (16:33→21:01)
[2024-04-04 17:32] VITALS: BP 124/38; PULSE 81; RESP 17; TEMP 36.5; O2SAT 97
--- NOTE | 2024-04-04 18:07 | NURSING ---
8 konstantin removed and steri strips applied. pt tolerated well.
[2024-04-04] MEDS: Pantoprazole Sodium 40 MG Tablet PO (21:01)
[2024-04-04] MEDS: Atorvastatin Calcium 20 MG Tablet PO (21:01)
[2024-04-04] MEDS: Pregabalin 50 MG Capsule PO (21:01)
[2024-04-04 22:00] VITALS: PULSE 81; RESP 17; O2SAT 97
[2024-04-04] MEDS: Rivaroxaban 15 MG Tablet PO (22:26)
[2024-04-05 06:00] VITALS: BP 161/63; PULSE 95; RESP 16; TEMP 36.8; O2SAT 96
[2024-04-05] MEDS: Metoclopramide 10 MG Tablet PO ×4 (06:34→20:55)
[2024-04-05] MEDS: Acetaminophen 500 MG Tablet 1000 MG PO ×3 (06:35→21:00)
[2024-04-05 07:08] LABS: Hemoglobin 9.1 g/dL (12.0-15.0)
[2024-04-05] MEDS: Pantoprazole Sodium 40 MG Tablet PO ×2 (07:59→20:55)
[2024-04-05] MEDS: Rivaroxaban 15 MG Tablet PO ×2 (07:59→20:56)
[2024-04-05] MEDS: Ascorbic Acid 500 MG Tablet PO ×2 (07:59→16:16)
[2024-04-05] MEDS: Azithromycin 250 MG Tablet 500 MG PO (07:59)
[2024-04-05] MEDS: Vitamin E 400 UNITS Capsule PO (07:59)
[2024-04-05] MEDS: amLODIPine 5 MG Tablet PO ×2 (07:59→20:54)
[2024-04-05] MEDS: Lisinopril 20 MG Tablet PO (07:59)
[2024-04-05] MEDS: Allopurinol 300 MG Tablet PO (07:59)
[2024-04-05] MEDS: Pregabalin 50 MG Capsule PO ×2 (08:02→20:54)
--- NOTE | 2024-04-05 09:10 | PN_ITS ---
Subjective Subjective Afebrile VSS -blood pressure once again is elevated at 161/63. It was within goal last night to have 5:30 PM. Currently taking amlodipine 5 mg and lisinopril 20 mg, both in the AM. May be experiencing end of dose failure. Maintaining appropriate oxygen saturation on RA Oral intake - FOOD ate 75 to 100% of supper last night and breakfast this morning. FLUIDS good Last bowel movement was 04/03/2024. No bowel movement yesterday. Discussed with nursing - no problems that need addressed Reviewed the THERAPY notes Medication list reviewed. All lab drawn this morning was personally reviewed. Hemoglobin is 9.1 and stable. Kamala tells me that she feels less fuzzy today. She slept well last night. She denies lightheadedness, CP, SOB, N/V/abd pain/heartburn. She does not feel bloated. She denies radicular pain into her legs......Lyrica was decreased to 50 mg BID last night. Objective Data Objective Data Vital Signs: Vital Signs Temp Pulse Resp BP Pulse Ox O2 Del Method FiO2 98.3 F 95 16 161/63 H 96 Room Air 21 04/05/24 06:00 04/05/24 06:00 04/05/24 06:00 04/05/24 06:00 04/05/24 06:00 04/05/24 06:00 04/01/24 15:20 Oxygen Delivery Method Room Air Weight: 240 lb 15.444 oz Body Mass Index (BMI) 42.7 Intake & Output: Intake and Output for Last 24 Hours 04/03/24 04/04/24 04/05/24 23:59 23:59 23:59 Intake Total 3070 / 3470 2274.25 / 2274.25 880 / 880 Output Total 2150 / 2150 1050 / 1750 1050 / 1050 Balance 920 / 1320 1224.25 / 524.25 -170 / -170 Lab / Micro Data 04/05/24 06:40 04/04/24 05:31 Labs: Laboratory Results - last 24 hr 04/01/24 12:19: Crossmatch See Detail 04/05/24 06:40: Hgb 9.1 L, Hct 29.0 L Micro: Microbiology 04/01/24 08:10 Stool Stool Occult Blood (STAN) - Final Occult Blood Positive Physical Exam Const Constitutional Narrative: More alert today. Was sitting in the recliner at the bedside when I entered the room. Not complaining of feeling weak and tired today. She had a shower with OT today and feels good. Tolerated the activity with no SOB and did not have to nap afterward. General Appearance: cooperative Resp clear to auscultation bilaterally Cardio regular rate, regular rhythm and no gallops Cardio Narrative: No ectopy GI normal to inspection, nondistended, normoactive bowel sounds, soft to palpation and non-tender GI Narrative: No guarding with palpation of the epigastric area Extremity no calf tenderness General Extremity: Negative for edema Skin Wound Narrative: All konstantin except the distal most staple at the tail of the incision were removed by nursing yesterday. I removed the staple today. There is a superficial slit of opening in the center of the incision in the distal 1/3 of the incision. There was a very small amount of serous drainage. No hannah- incisional erythema, no odor, no pain with palpation around the incision. Steri strips were applied to the distal 1/2/ of the incision and they were covered by a Mepilex......will re-examine in 2-3 days. Psych affect normal Psych Narrative: Not anxious, no sx of depression. More alert today. Assessment & Plan Assessment/Plan (1) Debility: (2) UGI bleed: (3) Gastric ulcer: QUALIFIERS: Gastric ulcer chronicity: acute Gastric ulcer complication status: with hemorrhage Qualified Code(s): K25.0 - Acute gastric ulcer with hemorrhage (4) Erosive esophagitis: (5) Delayed gastric emptying: (6) Acute blood loss anemia: (7) Pulmonary embolism: QUALIFIERS: Pulmonary embolism type: unspecified Chronicity: a cute Acute cor pulmonale presence: without acute cor pulmonale Qualified Code(s): I26.99 - Other pulmonary embolism without acute cor pulmonale (8) DVT (deep venous thrombosis): QUALIFIERS: DVT location: lower extremity Affected thrombotic vein of extremity: unspecified lower extremity proximal vein Chronicity: acute Laterality: left Qualified Code(s): I82.4Y2 - Acute embolism and thrombosis of unspecified deep veins of left proximal lower extremity (9) S/P lumbar fusion: (10) Chronic anticoagulation: (11) GERD (gastroesophageal reflux disease): QUALIFIERS: Esophagitis presence: without esophagitis Qualified Code(s): K21.9 - Gastro-esophageal reflux disease without esophagitis (12) Change in mental status: QUALIFIERS: Altered mental status type: unspecified Qualified Code(s): R41.82 - Altered mental status, unspecified PLAN: More likely than not due to multiple factors. Drugs, hypotension, hyponatremia. Better today. Continue to taper the Lyrica as tolerated. PLAN: Plan 1. Continue therapy 2. Continue lisinopril 20 mg p.o. every morning but give the amlodipine 5 mg at at bedtime. 3. Continue to taper the Lyrica every few days.......I suspect this is contributing significantly to the fuzziness and fatigue. 4. Recheck the incision or Thursday........until then leave the steri strips in place and the Mepilex. 5. Check a BMP and a CBC on Thursday. 6. DC Vitamin E due to its potential to decrease Vitamin K. Start a MV with minerals. 7. Will need to follow up with Dr. Herbert post DC for delayed gastric emptying and gastric ulcer/erosive esophagitis. Charges/Coding Visit Charges Inpatient E&M: 52775 Subs Hosp L1
[2024-04-05 17:44] VITALS: BP 117/55; PULSE 99; RESP 17; TEMP 36.7; O2SAT 96
[2024-04-05] MEDS: Atorvastatin Calcium 20 MG Tablet PO (20:54)
[2024-04-05] MEDS: 0.9% Saline Lock 10 ML Syringe IV (21:03)
[2024-04-05 22:00] VITALS: PULSE 99; RESP 17; O2SAT 96
[2024-04-06 06:00] VITALS: BP 138/56; PULSE 100; RESP 17; TEMP 36.8; O2SAT 96
[2024-04-06] MEDS: Metoclopramide 10 MG Tablet PO ×4 (06:20→21:50)
[2024-04-06] MEDS: Acetaminophen 500 MG Tablet 1000 MG PO ×3 (06:20→21:48)
[2024-04-06] MEDS: Azithromycin 250 MG Tablet 500 MG PO (08:19)
[2024-04-06] MEDS: Pregabalin 50 MG Capsule PO ×2 (08:19→21:48)
[2024-04-06] MEDS: Lisinopril 20 MG Tablet PO (08:19)
[2024-04-06] MEDS: Pantoprazole Sodium 40 MG Tablet PO ×2 (08:19→21:48)
[2024-04-06] MEDS: Ascorbic Acid 500 MG Tablet PO ×2 (08:19→16:17)
[2024-04-06] MEDS: Allopurinol 300 MG Tablet PO (08:19)
[2024-04-06] MEDS: Multivitamins,Ther W-Minerals Tablet 1 TABLET PO (08:19)
[2024-04-06] MEDS: 0.9% Saline Lock 10 ML Syringe IV ×2 (08:20→21:56)
[2024-04-06] MEDS: Senna/Docusate Sodium 1 Tablet 2 TABLET PO (08:20)
[2024-04-06] MEDS: Rivaroxaban 15 MG Tablet PO ×2 (08:20→21:49)
[2024-04-06 17:37] VITALS: BP 135/75; PULSE 113; RESP 17; TEMP 37; O2SAT 98
[2024-04-06] MEDS: amLODIPine 5 MG Tablet PO (21:50)
[2024-04-06] MEDS: Atorvastatin Calcium 20 MG Tablet PO (21:50)
[2024-04-07 06:00] VITALS: BP 140/62; PULSE 102; RESP 17; TEMP 36.2; O2SAT 96
[2024-04-07] MEDS: Metoclopramide 10 MG Tablet PO ×4 (06:40→21:11)
[2024-04-07] MEDS: Acetaminophen 500 MG Tablet 1000 MG PO ×3 (06:40→21:11)
[2024-04-07] MEDS: Senna/Docusate Sodium 1 Tablet 2 TABLET PO (07:35)
[2024-04-07] MEDS: Pantoprazole Sodium 40 MG Tablet PO ×2 (07:35→21:11)
[2024-04-07] MEDS: Multivitamins,Ther W-Minerals Tablet 1 TABLET PO (07:35)
[2024-04-07] MEDS: Allopurinol 300 MG Tablet PO (07:35)
[2024-04-07] MEDS: Ascorbic Acid 500 MG Tablet PO ×2 (07:35→16:26)
[2024-04-07] MEDS: Lisinopril 20 MG Tablet PO (07:35)
[2024-04-07] MEDS: Rivaroxaban 15 MG Tablet PO ×2 (07:35→21:12)
[2024-04-07] MEDS: Azithromycin 250 MG Tablet 500 MG PO (07:36)
[2024-04-07] MEDS: Pregabalin 50 MG Capsule PO (07:42)
--- NOTE | 2024-04-07 12:57 | CASEMGMT ---
Social Work IDT met with patient, , son and dtr for Team meeting. Discussed patient's progress in PT/OT/SN. Pt requesting to DC home 04/09 (instead of 04/10). IDT agreeable. SW informed pt/family of scheduled OP PT appt. No other needs noted. Lindy Rendon, INFECTION CONTROL RN [employer] DEVELOPER
--- NOTE | 2024-04-07 15:01 | PN_ITS ---
Subjective Subjective Kamala was seen on team rounds today. Her family was present in the room for rounds. Afebrile VSS - resting HR is increased today. It has been increased for the past 48 hours. RR is WNL. BP stable Maintaining appropriate oxygen saturation on RA Oral intake - FOOD good FLUIDS Fluid intake is pretty good but, OP is exceeding input. Not on a diuretic. Discussed with nursing - no problems that need addressed Reviewed the THERAPY notes Medication list reviewed. Denies lightheadedness, cephalgia, potation's, chest pain, shortness of breath at rest or with exertion, heartburn, nausea/vomiting/abdominal pain, diarrhea/constipation, dysuria and calf pain. Feeling more alert. Denies any radicular pain into the buttocks/legs. Sleeping well at night. Requesting to go home on Thursday rather than Thursday. Objective Data Objective Data Vital Signs: Vital Signs Temp Pulse Resp BP Pulse Ox O2 Del Method FiO2 97.2 F L 102 H 17 140/62 H 96 Room Air 21 04/07/24 06:00 04/07/24 06:00 04/07/24 06:00 04/07/24 06:00 04/07/24 06:00 04/07/24 06:00 04/01/24 15:20 Oxygen Delivery Method Room Air Weight: 240 lb 15.444 oz Body Mass Index (BMI) 42.7 Intake & Output: Intake and Output for Last 24 Hours 04/05/24 04/06/24 04/07/24 23:59 23:59 23:59 Intake Total 1630 / 1630 1790 / 1790 700 / 700 Output Total 2250 / 2250 1500 / 1900 1650 / 1650 Balance -620 / -620 290 / -110 -950 / -950 Lab / Micro Data 04/05/24 06:40 04/04/24 05:31 Micro: Microbiology 04/01/24 08:10 Stool Stool Occult Blood (STAN) - Final Occult Blood Positive Physical Exam Const alert, oriented x3 and no apparent distress General Appearance: cooperative HEENT Mouth: dry mucous membranes Resp clear to auscultation bilaterally Cardio Cardio Narrative: Increased resting heart rate with no ectopy. No murmur and no gallop. GI normal to inspection, nondistended, normoactive bowel sounds, soft to palpation and non-tender GI Narrative: Bowel sounds are not hyperactive and she has no guarding to palpation. Extremity no calf tenderness Extremity Narrative: MALIK wraps are in place. She does not like wearing them. General Extremity: Negative for edema Skin Wound Narrative: The Mepilex dressing is in place over the incision. There is no discharge on the dressing and there is no erythema that extends beyond the dressing. Assessment & Plan Assessment/Plan (1) Debility: (2) UGI bleed: (3) Gastric ulcer: QUALIFIERS: Gastric ulcer chronicity: acute Gastric ulcer complication status: with hemorrhage Qualified Code(s): K25.0 - Acute gastric ulcer with hemorrhage (4) Erosive esophagitis: (5) Delayed gastric emptying: (6) Acute blood loss anemia: (7) Pulmonary embolism: QUALIFIERS: Pulmonary embolism type: unspecified Chronicity: a cute Acute cor pulmonale presence: without acute cor pulmonale Qualified Code(s): I26.99 - Other pulmonary embolism without acute cor pulmonale (8) DVT (deep venous thrombosis): QUALIFIERS: DVT location: lower extremity Affected thrombotic vein of extremity: unspecified lower extremity proximal vein Chronicity: acute Laterality: left Qualified Code(s): I82.4Y2 - Acute embolism and thrombosis of unspecified deep veins of left proximal lower extremity (9) S/P lumbar fusion: (10) Chronic anticoagulation: (11) GERD (gastroesophageal reflux disease): QUALIFIERS: Esophagitis presence: without esophagitis Qualified Code(s): K21.9 - Gastro-esophageal reflux disease without esophagitis (12) Change in mental status: QUALIFIERS: Altered mental status type: unspecified Qualified Code(s): R41.82 - Altered mental status, unspecified PLAN: More likely than not due to multiple factors. Drugs, hypotension, hyponatremia. Better today. Continue to taper the Lyrica as tolerated. PLAN: Plan 1. Continue therapy 2. BMP and CBC with differential in the a.m. 3. Reexamine the incision tomorrow and if no change reapply Mepilex dressing which she will leave for 5 to 7 days. 4. Plan discharge home outpatient therapy on Thursday. Charges/Coding Visit Charges Inpatient E&M: 91499 Subs Hosp L2
[2024-04-07] MEDS: 0.9% Saline Lock 10 ML Syringe IV ×2 (16:27→21:12)
[2024-04-07 17:25] VITALS: BP 130/82; PULSE 109; RESP 18; TEMP 37; O2SAT 96
[2024-04-07] MEDS: Atorvastatin Calcium 20 MG Tablet PO (21:11)
[2024-04-07] MEDS: Pregabalin 25 MG Capsule PO (21:11)
[2024-04-07] MEDS: amLODIPine 5 MG Tablet PO (21:11)
[2024-04-08] MEDS: Acetaminophen 500 MG Tablet 1000 MG PO ×3 (05:53→21:54)
[2024-04-08 06:00] VITALS: BP 112/49; PULSE 93; RESP 16; TEMP 36.7; O2SAT 96; BMI 42.7
[2024-04-08] MEDS: Metoclopramide 10 MG Tablet PO ×4 (06:02→21:54)
[2024-04-08 07:42] LABS: Absolute Lymphocyte Count 3.72 X10^3/uL (0.83-4.51); Absolute Neutrophil Count 7.3 X10^3/uL (2.0-7.7); Basophil% 0.8 % (0-1); Eosinophil# 0.32 X10^3/uL; Eosinophils% 2.6 % (0-5); Hematocrit 33.2 % (37-47); Hemoglobin 10.5 g/dL (12.0-15.0); Lymphocyte # 3.72 X10^3/ul (0.83-4.51); Mean Corp Hgb Conc 31.6 g/dL (32-36); Mean Corpuscular Hgb 30.4 pg (27.0-32.0); Mean Corpuscular Volume 96.2 fL (81-99); Mean Platelet Vol. 11.9 fl (6.2-12.0); Monocyte# 0.71 X10^3/uL; Monocyte% 5.7 % (0-10); NRBC Flagged by Analyzer 0 % (0-5); Neutrophil # 7.28 X10^3/uL (2.7-7.7); Neutrophil % 58.7 % (47-70); Platelet Count 271 K/mm3 (150-450); RBC Distribution Width SD 59.7 fl (35.1-43.9); Red Blood Count 3.45 M/mm3 (4.2-5.4); White Blood Count 12.4 K/mm3 (4.4-11.0)
[2024-04-08] MEDS: Lisinopril 20 MG Tablet PO (07:44)
[2024-04-08] MEDS: Allopurinol 300 MG Tablet PO (07:44)
[2024-04-08] MEDS: Senna/Docusate Sodium 1 Tablet 2 TABLET PO ×2 (07:44→21:54)
[2024-04-08] MEDS: Pantoprazole Sodium 40 MG Tablet PO ×2 (07:44→21:54)
[2024-04-08] MEDS: Multivitamins,Ther W-Minerals Tablet 1 TABLET PO (07:44)
[2024-04-08] MEDS: Azithromycin 250 MG Tablet 500 MG PO (07:45)
[2024-04-08] MEDS: Ascorbic Acid 500 MG Tablet PO ×2 (07:45→16:23)
[2024-04-08] MEDS: Rivaroxaban 15 MG Tablet PO ×2 (07:45→21:54)
[2024-04-08] MEDS: Pregabalin 25 MG Capsule PO ×2 (07:47→21:53)
[2024-04-08 08:09] LABS: Anion Gap 5 (5-15); BUN 15 mg/dL (7-18); BUN/Creat Ratio 14.3 RATIO (10-20); Calcium,Total 9.2 mg/dL (8.5-10.1); Chloride 105 mmol/L (98-107); Creatinine, Serum 1.05 mg/dL (0.55-1.02); EST Glomerular Filtration Rate 55 mL/min (>60); Est Glom Filt Rate - Afr Amer 66 mL/min (>60); Estimated Creatinine Clearance 58.37 ml/min; Glucose 91 mg/dL (74-106); Potassium 4.3 mmol/L (3.5-5.1); Sodium Level 136 mmol/L (136-145)
--- NOTE | 2024-04-08 17:03 | PCM.DC.SUM ---
Providers Date of Admission: 03/27/24 Date of Discharge: 04/09/24 Primary Care Physician: Dr. Raffaele Rodriges MD Consultations 04/01/24 11:10 Consult: Gastroenterology Routine Consulting Provider: [facility] Reason for Consult: UGI bleed EMERGENT Consult: Yes MD Notified: Yes Date Notified: 04/01/24 Time Notified: 11:10 Method of Notification: Text Reason For Visit: B/L PE, DVT LLE, S/P LUMBAR SX Diagnosis Discharge Diagnosis (1) Debility: Status: Acute Code(s): R53.81 - Other malaise Plan: Due to lumbar laminectomy/fusion, extensive DVT LLE with multiple BL PE's and UGI bleed due to gastric ulcer and erosive esophagitis (2) UGI bleed: Status: Acute Code(s): K92.2 - Gastrointestinal hemorrhage, unspecified Plan: Due to Gastric ulcer and erosive esophagitis. Both were treated by Dr. Herbert with a heater probe. HGB is stable at [place]. (3) Gastric ulcer: Status: Acute Code(s): K25.9 - Gastric ulcer, unspecified as acute or chronic, without hemorrhage or perforation Qualifiers: Gastric ulcer chronicity: acute Gastric ulcer complication status: with hemorrhage Qualified Code(s): K25.0 - Acute gastric ulcer with hemorrhage Plan: Has follow up scheduled with Dr. Herbert. (4) Erosive esophagitis: Status: Acute Code(s): K22.10 - Ulcer of esophagus without bleeding (5) Delayed gastric emptying: Status: Acute Code(s): K30 - Functional dyspepsia Plan: Continue Azithromycin and Reglan at [place]. Continue Protonix 40 mg BID. Tolerating regular, no caffeine diet at [place]. Denies heartburn, nausea and abd pain. (6) Acute blood loss anemia: Status: Acute Code(s): D62 - Acute posthemorrhagic anemia Plan: Hemoglobin is stable at 10.5 one day prior to discharge (7) Pulmonary embolism: Status: Acute Code(s): I26.99 - Other pulmonary embolism without acute cor pulmonale Qualifiers: Acute cor pulmonale presence: without acute cor pulmonale Chronicity: acute Pulmonary embolism type: unspecified Qualified Code(s): I26.99 - Other pulmonary embolism without acute cor pulmonale Plan: Multiple BL PE's with no right heart strain. Denies shortness of breath and chest pain at discharge. No hemoptysis. Will need to remain on anticoagulation for a total of 6 months. (8) DVT (deep venous thrombosis): Status: Acute Code(s): I82.409 - Acute embolism and thrombosis of unspecified deep veins of unspecified lower extremity Qualifiers: Affected thrombotic vein of extremity: unspecified lower extremity proximal vein Chronicity: acute DVT location: lower extremity Laterality: left Qualified Code(s): I82.4Y2 - Acute embolism and thrombosis of unspecified deep veins of left proximal lower extremity Plan: Extensive DVT in the left lower extremity. Denies leg pain at discharge. (9) S/P lumbar fusion: Status: Acute Code(s): Z98.1 - Arthrodesis status (10) Chronic anticoagulation: Status: Acute Code(s): Z79.01 - terminologist (current) use of anticoagulants Plan: Discharged on Xarelto 15 mg twice daily for 11 doses and then transition to 20 mg daily. Continue anticoagulation for a total of 6 months. (11) GERD (gastroesophageal reflux disease): Status: Chronic Code(s): K21.9 - Gastro-esophageal reflux disease without esophagitis Qualifiers: Esophagitis presence: without esophagitis Qualified Code(s): K21.9 - Gastro-esophageal reflux disease without esophagitis (12) Change in mental status: Status: Acute Code(s): R41.82 - Altered mental status, unspecified Qualifiers: Altered mental status type: unspecified Qualified Code(s): R41.82 - Altered mental status, unspecified Plan: More likely than not due to multiple factors. Drugs, hypotension, hyponatremia. mentation improved significantly with tapering of Lyrica dose. At DC she is on 25 mg BID and she denies radicular pain. Has not had a Oxycodone since 03/30/24. (13) Hematochezia: Status: Acute Code(s): K92.1 - Melena Plan: on the day of DC. Small amount of bright red blood after hard BM. Started on Anusol HC (14) Hemorrhoids: Status: Acute Code(s): K64.9 - Unspecified hemorrhoids Qualifiers: Hemorrhoid type: unspecified Qualified Code(s): K64.9 - Unspecified hemorrhoids (15) Hyponatremia: Status: Resolved Code(s): E87.1 - Hypo-osmolality and hyponatremia Medications at Discharge Home Medications allopurinol 300 mg tablet 300 mg PO DAILY Gout 03/27/24 amlodipine 5 mg-benazepril 20 mg capsule 1 cap PO DAILY BP 03/27/24 rosuvastatin 10 mg tablet 10 mg PO DAILY Cholestrol 03/27/24 acetaminophen 500 mg capsule 1,000 mg (2 x 500 mg) PO Q8 PRN Pain #90 caps 04/07/24 ascorbic acid (vitamin C) 500 mg tablet 500 mg PO BIDCM #60 tabs 04/07/24 azithromycin 250 mg tablet 500 mg (2 x 250 mg) PO Q24 #30 tabs 04/07/24 metoclopramide HCl 10 mg tablet 10 mg PO ACHS #120 tabs 04/07/24 pantoprazole 40 mg tablet,delayed release 40 mg PO BID #60 tabs 04/07/24 pregabalin 25 mg capsule 25 mg PO BID #60 caps 04/07/24 rivaroxaban 15 mg tablet (Xarelto) 15 mg PO BID #11 tabs 04/07/24 rivaroxaban 20 mg tablet 20 mg PO DAILY Blood thinner #30 tabs 04/07/24 hydrocortisone acetate 25 mg rectal suppository (Anusol-HC) 25 mg NJ BID #4 ea 04/08/24 oxycodone 5 mg tablet 5 mg PO Q6H PRN pain 1 week #14 tabs 04/08/24 mupirocin 2 % topical ointment 1 applic topical BID #22 grams 04/09/24 Hospital Course Operations - (Lumbar laminectomy and fusion 03/14/2024 at [facility].) Procedures EGD (04/01/[address] Herbert. Erosive esophagitis treated with a heater probe and oozing gastric ulcer with a visible vessel treated with a heater probe.) and - (Transfusion of 1 unit of packed red blood cells on 04/02/2024 for hypotension and acute blood loss anemia.) Summary of Care Provided Minutes Spent on Discharge: 38 Hospital Course: SUNNY CHIRINOS, is a 73 YO F with a PMH of HTN, HLD, morbid obesity, hx of generalized anxiety disorder with panic attacks/depression (when she was hannah-menopausal - this had resolved years ago prior to admission to rehab but, recently started on duloxetine for chronic pain), gout, pharyngeal esophageal dysphagia, GERD, osteoarthritis and lumbar radiculopathy/neurogenic claudication. She underwent a transforaminal lumbar interbody fusion on 03/14/24 at [facility]. She was discharged home but developed pain in her feet/calves and poor appetite and went to see her PCP on 03/21/2024. Lab work was done and was notable for a white blood cell count of 28,000, sodium of 127 and a creatinine of 2.1. She was sent to the local emergency department at the advice of her PCP and her blood pressure was 70s over 50s. Serum lactate was elevated at 2.9. W/U was + for multiple BL PE's and DVT of the left femoral, popliteal, gastrocnemius and tibial peroneal veins. There was no evidence of right heart strain. She was hydrated and empirically started on IV vancomycin/cefepime which was quickly discontinued at [facility] because she had no evidence of infection. She was admitted to [facility]. She was initiated on a heparin infusion and later transitioned to Xarelto. She was transferred to the acute inpt rehab unit at [facility] on 03/27/24 for 3 hours of therapy daily to restore function/independence at or near her baseline. A few days after admission to rehab she was c/o nausea and heartburn. She had a couple episodes of emesis and she attributed this to oxycodone. On 04/01/2024 she had an emesis with some bright red blood strands and coffee grounds. Hemoccult stool was positive. She was made n.p.o. and Dr. Herbert was consulted. She was started on IV Protonix 40 mg every 12 hours. She had an EGD on 04/01/2024 that showed erosive esophagitis with bleeding, a small hiatal hernia, large amount of food residue in the stomach along with [id number] material and an oozing gastric ulcer with a visible vessel. The erosive esophagitis and gastric ulcer were treated with a heater probe. Dr. Herbert started azithromycin 500 mg IV daily and Reglan 10 mg IV every 6 hours. She became mildly hypotensive late in the evening on 04/01 and she was treated with IV NS and 1 unit of PRBC's. Her hemoglobin had dropped from 9.8-8.3 over the course of approximately 12 hours. The following morning the hemoglobin was 8.7 and it has remained stable ever since. Her hemoglobin on 04/08/2024 was 10.5 but she was mildly dehydrated and encouraged to increase her fluid intake. She was transitioned to PO Protonix, Azithromycin and Reglan on 04/01/24. Her family was concerned that she was drowsy and had fuzzy thinking on the 9th and tenth. I suspect this was related to Lyrica and the dose has been tapered with good improvement in her level of alertness. Prior to DC the dose had been tapered to 25 mg BID and she denies any radicular pain at the time of DC. On 03/29/24 she had a harder BM and there was a small amount of BRB on the stool. She had been refusing stool softeners. She was treated with hydrocortisone suppositories and instructed to increase her fluid and fiber intake and to take a stool softener at DC. At the time of DC she is able to navigate 2 [address] steps with a front wheeled walker at contact-guard assist and 5 steps of various heights and 2 handrails at contact-guard assist. She is able to complete 11 sit to stands using her upper extremities to push up in 30 seconds. She has ambulated up to 100 feet with a front wheeled walker at standby assist with a wheelchair follow. She is mod I for transfers from various surfaces. She was ambulating in her room from 7 AM to 7 PM without assistance using a front wheeled walker. She is mod I with grooming, bathing, upper body dressing, lower body dress, toileting and toilet transfer. She is supervision/set up for tub/shower transfer. Kamala requested to be discharged home on 04/09/24. The rehab team felt she had adequate help available at home and she would be safe to DC home. she will continue PT as an OP. Physical Exam Const alert, oriented x3 and no apparent distress General Appearance: cooperative HEENT HEENT Narrative: Mucous membranes are little dry. No evidence of thrush. Mouth: dry mucous membranes Eyes PERRL, EOMs intact bilaterally, conjunctivae normal and no scleral icterus Eyes Narrative: No discharge from the eyes Neck supple Chest Chest: symmetrical chest wall rise Resp normal respiratory effort, normal air movement and clear to auscultation bilaterally Resp Narrative: Not tachypneic Effort and Inspection: able to speak in complete sentences Cardio regular rate, regular rhythm, no murmurs, no rub and no gallops Cardio Narrative: No ectopy. Resting heart rate is better today and is currently 71. GI normal to inspection, nondistended, normoactive bowel sounds, soft to palpation and non-tender GI Narrative: Bowel sounds are not hyperactive and she has no guarding to palpation. Back/Spine Back/Spine Narrative: No tenderness to palpation around the incision. Denies CVA tenderness. Extremity no calf tenderness Extremity Narrative: MALIK wraps are in place. She does not like wearing them. General Extremity: Negative for edema Skin Skin Narrative: The incision is intact. There is no DC from the incision......even when I tried to express some. No fluctuance. No pain with palpation around the incision. This is a very difficult area to dress and keep dry. Due to body habitus moisture tends to collect there and it is keeping the incision soft. There are a few areas of very superficial openings in the skin with no DC. There is no odor. No swelling around the incision. No significant erythema, no increased warmth to touch around the incision. Rashes: no rashes Neuro oriented x3, CN's II-XII intact bilaterally, moves all extremities and no focal motor deficits Neuro Narrative: Denies radicular pain in the buttocks and legs. Psych mental status grossly normal, thought process normal, cooperative and affect normal Weight / BMI Weight Weight: 241 lb 6.499 oz Body Mass Index (BMI) 42.7 ABG / Lab / Microbiology Data 04/08/24 07:22 04/08/24 07:22 Laboratory: Laboratory Results - last 24 hr 04/08/24 07:22: WBC 12.4 H, RBC 3.45 L, Hgb 10.5 L, Hct 33.2 L, MCV 96.2, MCH 30.4, MCHC 31.6 L, RDW Std Deviation 59.7 H, RDW Coeff of Nikia 17.0 H, Plt Count 271, MPV 11.9, Immature Gran % (Auto) 2.200 H, Neut % (Auto) 58.7, Lymph % (Auto) 30.0, Cowley % (Auto) 5.7, Eos % (Auto) 2.6, Baso % (Auto) 0.8, Absolute Neuts (auto) 7.3, Absolute Lymphs (auto) 3.72, Nucleated RBC % 0, Sodium 136, Potassium 4.3, Chloride 105, Carbon Dioxide 26.0, Anion Gap 5, BUN 15, Creatinine 1.05 H, Estim Creat Clear Calc 58.37, Est GFR (MDRD) Af Amer 66, Est GFR (MDRD) Non-Af 55 L, BUN/Creatinine Ratio 14.3, Glucose 91, Calcium 9.2 Microbiology: Microbiology 04/01/24 08:10 Stool Stool Occult Blood (STAN) - Final Occult Blood Positive D/C Instructions Discharge Diet: - (regular/no caffeine, peppermints or chocolate (these foods increase reflux)) Discharge Activity: May Not Drive and Use Walker Weight Bearing Status: Full weight bearing Keep extremity elevated above heart level: Legs Call your doctor if your incision/area has: Continuous Slow Oozing, Sudden Increased Bleeding, Increased Pain/ Swelling, Increased Redness, Foul Smelling Discharge and Swelling at the incision site Call your doctor if you observe: Fever of 101 or Higher, Shortness of breath, Dizziness, Fainting spells, Chest pain, Increased palpitations (irregular heartbeat) and Uncontrolled pain Cleanse incision/area with: Soap & Water and - (Apply Mupirocin ointment twice a day to the incision. Keep the incision dry.) Pending Tests Upon Discharge: none When: appts are listed later in this document Meaningful Use Info Meaningful Use Meaningful Use Diagnoses (Choose all that apply): VTE (Extensive DVT left lower extremity and multiple bilateral pulmonary emboli) Ischemic Stroke Statin Dosing Therapy Reference: STATIN DOSE THERAPY REFERENCE: * Patients > 75 years receive moderate or high dose statin therapy. * Patients 75 years or YOUNGER should receive HIGH intensity statin dose unless contraindicated. You will be required to document reason for non-treatment if statin daily dose does not meet guidelines. HIGH DOSE STATIN THERAPY DAILY Atorvastatin > than or = to 40 mg Rosuvastatin > than or = to 20 mg Amlodipine + Atorvastatin > than or = to 2.5/40 mg Ezetimibe + Simvastatin 10/80 mg Simvastatin 80mg VTE Anticoag overlap given w/in hospital stay or rx'd at dc?: No Pt receive overlap for 5 days?: No Reason overlap not ordered, prescribed, or given for 5 days: Treatment Not Indicated (She is on Xarelto ) Discharge Plan Admission Admit Date/Time: 03/27/24 13:53 Primary Reason for Your Visit: Debility due to Lumbar laminectomy/fusion with multiple BL PE's/GIB Attending Provider: Liz Parsons Primary Care Provider: Raffaele Rodriges Instructions Patient Instructions: Caring for Your Incision Additional Instructions / Restrictions: 1. WOW, you have been through a lot since the surgery on Mar 14. It is going to be 3-6 months before you feel back to your baseline. It is very important to keep moving. When you sit for too long or lay in bed for too long you get stiff and then it makes it more difficult to get up and the pain increases. Icing after exercise helps with inflammation and pain. Get up and take a walk in the house every hour or so. Do the exercises given to you by the therapists 5-6 times a week. Your strength will gradually increase and your activity tolerance. To avoid recurrent back problems going forward you may want to try and lose some weight. HArd to do but, very helpful in patients with chronic back pain. there are now some effective drugs to help people lose weight. I would discuss with your PCP. Regular exercise keeps your muscles that support the back strong........consider joining a gym or an exercise group.......exercise is always more fun if you have someone to do it with you. 2. You tend not to drink enough fluids during the day. This increases the heart rate, causes lightheadedness and causes increased fatigue. You should be drinking enough fluid to keep the urine a PALE yellow. Dehydration also leads to headaches. 3. You are anemic but, the blood count has been stable since you had 1 unit of blood. You no longer have heartburn or nausea. Signs that you may be bleeding again include recurrent heartburn, nausea/vomiting, diarrhea (yolande if black and liquid), abd pain, shortness of breath and racing heart. 4. Your stomach was not emptying appropriately (the official name for this is gastroparesis) and this lead to nausea and reflux. This may have been due to the ulcer in the stomach but, there may be another reason. You are now on 2 drugs that increase motility in the stomach. There drugs are Azithromycin (an antibiotic that increases gastric emptying) and Reglan (metoclopramide). Metoclopramide increases the motility in the esophagus and the stomach. You are tolerating these medications with no adverse side effects. Gastric ulcers can occur with medications like Aleve/Advil and they also occur with increased stress. Stress ulcers can appear within 24 hours after a stressful event. You were under a lot of stress due to pain/surgery and the blood clots in the lung and L leg. Gastric ulcers often need to have a second look after the ulcer has been treated to makes sure it has healed. You will need to follow up with Dr. Herbert about both the gastric ulcer and the gastroparesis. 5. The anticoagulant (Xarelto) does not dissolve the blots in the Left leg or the Lung. Your body will dissolve the clots over a period of months. You will need to take the anticoagulant for 6 months since you had extensive clot in the left leg and in both lungs. You may need to have a ultrasound of the Left leg in 6 months to makes sure the clot is gone. 6. The incision looks good. There is no sign of infection and the incision is intact. 7. Lyrica (used to treat nerve pain) has a lot of side effects........it can cause central nervous system slowing and this leads to drowsiness and mental slowing. Since you are no longer having radiating pain into your legs and you were having problems with fuzziness and sleeping a lot we have tapered down the dose of Lyrica. You are much more alert and sleeping less since we have been tapering the dose. Hopefully you will be able to get off this medication going forward. You have not needed to take the narcotic since 03/30/24. I am going to give you a prescription for a pain medication called Tramadol to have at home. Sometimes people tend to do more at home and then they have more pain.......I want you to have something to take if this happens. 8. It has been a pleasure getting to know you. If you or your family have any questions after you leave rehab please do not hesitate to call me! OFFICE: [phone] CELL: [phone] NURSES ST[facility] ON REHAB: [phone] You are having bleeding hemorrhoids because your BM's are not soft enough. Increase fluid intake, increase fiber in your diet and take Metamucil or Citracel once a day. You need to take a stool softener. Discharge Orders/Prescriptions Prescriptions: New ascorbic acid (vitamin C) 500 mg Tablet 500 mg PO BIDCM Qty: 60 0RF Rx Instructions: TAKE 2 TABS WITH AN IRON TABLET (FERROUS SULFATE) WITH SUPPER DAILY azithromycin 250 mg Tablet 500 mg PO Q24 Qty: 30 0RF pantoprazole 40 mg Tablet,Delayed Release (Dr/Ec) 40 mg PO BID Qty: 60 0RF metoclopramide HCl 10 mg Tablet 10 mg PO ACHS Qty: 120 0RF pregabalin 25 mg Capsule 25 mg PO BID Qty: 60 0RF Xarelto 15 mg Tablet 15 mg PO BID Qty: 11 0RF Rx Instructions: TAKE TWICE A DAY UNTIL GONE AND THEN START 20 MG ONCE A DAY oxycodone 5 mg tablet 5 mg PO Q6H PRN (Reason: pain) 7 Days Qty: 14 0RF hydrocortisone acetate [Anusol-HC] 25 mg suppository 25 mg NJ BID Qty: 4 0RF mupirocin 2 % ointment 1 applic topical BID Qty: 22 0RF Rx Instructions: apply to the incision twice a day. Continued allopurinol 300 mg tablet 300 mg PO DAILY amlodipine-benazepril 5-20 mg capsule 1 cap PO DAILY rosuvastatin 10 mg tablet 10 mg PO DAILY rivaroxaban 20 mg tablet 20 mg PO DAILY Qty: 30 0RF Rx Instructions: must administer with evening meal Changed acetaminophen 500 mg capsule 1,000 mg PO Q8 PRN (Reason: Pain) Qty: 90 0RF Discontinued pantoprazole 40 mg tablet,delayed release (DR/EC) 40 mg PO DAILY pregabalin 75 mg capsule 75 mg PO BID rivaroxaban 15 mg tablet 15 mg PO BID Rx Instructions: must administer with evening meal duloxetine [Cymbalta] 20 mg capsule,delayed release(DR/EC) 20 mg PO QHS Referrals / Follow Up: Oumou Ma [Other] - 04/13/24 2:30 pm (Neurosurgeon 1st floor registration desk [place] office) Raffaele Rodriges [Other] - 04/14/24 10:15 am Ang Herbert DO [Med Staff - Active Staff] - 04/15/24 9:30 am (Will see FATOUMATA Umanzor) Disposition Disposition (needs filled in before D/C Order can be placed): Home, Self Care Charges/Coding Visit Charges Inpatient E&M: 32769 Disch Hosp >30min
[2024-04-08 17:23] VITALS: BP 106/40; PULSE 71; RESP 18; TEMP 36.4; O2SAT 96
[2024-04-08] MEDS: Atorvastatin Calcium 20 MG Tablet PO (21:53)
[2024-04-08] MEDS: amLODIPine 5 MG Tablet PO (22:03)
[2024-04-09 06:00] VITALS: BP 137/62; PULSE 100; RESP 18; TEMP 36.8; O2SAT 97
[2024-04-09] MEDS: Acetaminophen 500 MG Tablet 1000 MG PO (06:35)
[2024-04-09] MEDS: Metoclopramide 10 MG Tablet PO ×2 (06:35→10:58)
[2024-04-09] MEDS: Pregabalin 25 MG Capsule PO (09:28)
[2024-04-09] MEDS: Azithromycin 250 MG Tablet 500 MG PO (09:28)
[2024-04-09] MEDS: Allopurinol 300 MG Tablet PO (09:28)
[2024-04-09] MEDS: Pantoprazole Sodium 40 MG Tablet PO (09:29)
[2024-04-09] MEDS: Ascorbic Acid 500 MG Tablet PO (09:30)
[2024-04-09] MEDS: Rivaroxaban 15 MG Tablet PO (09:30)
[2024-04-09] MEDS: Multivitamins,Ther W-Minerals Tablet 1 TABLET PO (09:31)
[2024-04-09] MEDS: Lisinopril 20 MG Tablet PO (09:32)
--- NOTE | 2024-04-09 13:00 | NURSING ---
Discharge instruct given and patient verbalized understanding.
== END 2024-04-09 13:00 | disposition home or self-care (01) | DRG 559 ==
PROVIDERS: Internal Medicine Gastroenterology; Admitting Provider Internal Medicine; Visit Provider Internal Medicine
PROC: 0DJ08ZZ Inspection of Upper Intestinal Tract, Via Natural or Artificial Opening Endoscopic (ICD-10-PCS; CPT 43235; principal; 2024-04-01 15:10)
DX: Z47.89 Encounter for other orthopedic aftercare (principal); K25.0 Acute gastric ulcer with hemorrhage; I26.09 Other pulmonary embolism with acute cor pulmonale; K21.01 Gastro-esophageal reflux disease with esophagitis, with bleeding; I82.412 Acute embolism and thrombosis of left femoral vein; I82.432 Acute embolism and thrombosis of left popliteal vein; E87.1 Hypo-osmolality and hyponatremia; D62 Acute posthemorrhagic anemia; I82.442 Acute embolism and thrombosis of left tibial vein; Z68.41 Body mass index [BMI] 40.0-44.9, adult; K56.7 Ileus, unspecified; N17.9 Acute kidney failure, unspecified; I82.452 Acute embolism and thrombosis of left peroneal vein; K22.10 Ulcer of esophagus without bleeding; I10 Essential (primary) hypertension; E66.01 Morbid (severe) obesity due to excess calories; K31.84 Gastroparesis; K44.9 Diaphragmatic hernia without obstruction or gangrene; M54.16 Radiculopathy, lumbar region; E86.0 Dehydration; M10.9 Gout, unspecified; E78.00 Pure hypercholesterolemia, unspecified; M48.062 Spinal stenosis, lumbar region with neurogenic claudication; I82.462 Acute embolism and thrombosis of left calf muscular vein; Z98.1 Arthrodesis status; Z79.01 Long term (current) use of anticoagulants; Z79.899 Other long term (current) drug therapy; G89.29 Other chronic pain; R13.13 Dysphagia, pharyngeal phase
CPT/HCPCS: 36415; 80048; 80053; 82274; 83735; 84100; 84550; 85014; 85018; 85025; 85027; 86850; 86900; 86901; 86920; 86922; 94668; 94762; 97110; 97162; 97166; 97530; 97535; 97802; J7030; J7040; P9016; A4216; J2405

== ENCOUNTER 2024-06-28 11:06 | Day surgery (SDC) | payer MEDICARE, OTHER, SELFPAY ==
[2024-06-28] VITALS (7 sets, daily range): BP systolic 114–130; BP diastolic 48–62; PULSE 65–94; RESP 14–20; TEMP 36.2–36.6; O2SAT 99–100; BMI 40.4
--- NOTE | 2024-06-28 11:43 | PRE.ANES_ITS ---
ASA Classification* ASA Classification ASA Classification: 3 Assessment & Plan Anesthesia* Anesthesia Assessment Anesthesia Assessment: Discussed sedation and/or anesthesia options, risks, benefits, and alternatives with patient/parents/legal guardian/POA. Questions invited. The patient/parents/legal guardian/POA seems to understand and agrees to proceed with anesthesia plan. Reviewed the physical assessment, medical history, allergy history and patient home medications list prior to surgery/procedure/anesthetic and documented any changes. Performed airway and anesthesia risk assessments. Anesthesia Type Anesthesia Type: MAC History Source History Obtained from:: Patient and Chart Anesthesia Focused Assessment* Temperature: 97.2 F Pulse Rate: 65 Blood Pressure: 130/48 Respiratory Rate: 17 Pulse Ox: 99 Oxygen Delivery Method: Room Air Airway Assessment Mouth opens: >3 cm Mallampati Score: III Teeth Condition: Intact Neck Range of motion (ROM): Full ROM Focused Labs Anesthesia Preop lab: CBC WBC 12.4 K/mm3 (4.4-11.0) H 04/08/24 07:22 4 RBC 3.45 M/mm3 (4.2-5.4) L 04/08/24 07:22 04/08/24 Hgb 10.5 g/dL (12.0-15.0) L 04/08/24 07:22 4 Hct 33.2 % (37-47) L 04/08/24 07:22 04/08/24 Plt Count 271 K/mm3 (150-450) 04/08/24 07:22 04/08/24 CHEMISTRY Potassium 4.3 mmol/L (3.5-5.1) 04/08/24 07:22 04/08/24 Sodium 136 mmol/L (136-145) 04/08/24 07:22 04/08/24 Magnesium 1.7 mg/dL (1.6-2.6) 03/28/24 06:43 03/28/24 Phosphorus 3.6 mg/dL (2.5-4.9) 03/28/24 06:43 03/28/24 BUN 15 mg/dL (7-18) 04/08/24 07:22 04/08/24 Creatinine 1.05 mg/dL (0.55-1.02) H 04/08/24 07:22 Glucose 91 mg/dL (74-106) 04/08/24 07:22 04/08/24 COAG Pre-Assessment Diagnosis/Proposed Procedure Planned Operative Procedure(s): egd Anesthesia History 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 When Was Last Pacemaker Check QUESTION #4 FULL TEXT: You/Your Family Experience fever (hyperthermia) with Anesthesia Last Oral Intake Last Oral intake: Last Oral Intake NPO since 00:00 06/28/24 11:27 Meds taken in AM with sips of Yes 06/28/24 11:27 water? Meds patient instructed to SEE HOME MED LIST 06/28/24 11:27 take am of surgery Any additional information?: Yes Meds taken in AM with sips of water?: Yes PONV PONV - fresh work inspector: PONV - fresh work inspector Female Yes 06/23/24 11:33 HX of Motion Sickness No 06/23/24 11:33 HX of N/V After Surgery No 06/23/24 11:33 Non-Smoker Yes 06/23/24 11:33 Duration of Surgery greater No 06/23/24 11:33 than 60 minutes Number of Risk Factors 2 06/23/24 11:33 PONV Score Moderate Risk 06/23/24 11:33 Height & Weight Height & Weight: Anesthesia: Height & Weight Height 5 ft 3 in 06/28/24 11:27 Weight: 103.6 kg 06/28/24 11:27 Body Mass Index (BMI) 40.4 06/28/24 11:27 Respiratory Assessment Respiratory Assessment - fresh work inspector: Respiratory Tract Infection Hx - fresh work inspector Hx Respiratory Tract Infection No 06/23/24 11:33 STOP Sleep Apnea STOP Sleep Apnea - fresh work inspector: STOP Sleep Apnea - fresh work inspector Hx Hypertension Yes: controlled with med 06/23/24 11:33 Hx Sleep Apnea No 06/23/24 11:33 CPAP BIPAP Do you snore loudly (louder No 06/23/24 11:33 than talking or can be heard Do you often feel tired/ No 06/23/24 11:33 fatigued/ sleepy during daytime? Has anyone observed you stop No 06/23/24 11:33 breathing during sleep? STOP Results Negative 06/23/24 11:33 QUESTION #5 FULL TEXT : Do you snore loudly (louder than talking or can be heard through closed doors)? 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 Specify any problems Hx of Preganancy in last 3 N/A 06/23/24 11:33 Months Nurse Filling Out Transfusion NBUCHER 06/23/24 11:33 & Questions: Date: 06/23/24 06/23/24 11:33 Time: 11:35 06/23/24 11:33 Patient unable to answer at this time (ie. confused, unrespo /Reproduction History /Reproductive History - fresh work inspector: /Reproductive Hx- fresh work inspector Hx Now No 06/23/24 11:33 Gestational Age (in weeks): EDC: Hx Hx Para Hx Section SAB No 06/23/24 11:33 PFSH Medical History Wears glasses Arthritis Gout High cholesterol GERD (gastroesophageal reflux disease) Non-smoker History of edema History of stress test History of gout Osteoarthritis Anxiety and depression Morbid obesity with BMI of 40.0-44.9, adult Ventral hernia without obstruction or gangrene Neurogenic claudication due to lumbar spinal stenosis Spondylolisthesis High cholesterol Chronic pain Hypertension DVT (deep venous thrombosis) Pulmonary embolism GERD (gastroesophageal reflux disease) Home Medications ?Medication ?Instructions ?Recorded ?Last Taken ?Type allopurinol 300 mg tablet 300 mg PO DAILY Gout 4 06/27/24 History amlodipine 5 mg-benazepril 20 mg 1 cap PO DAILY BP 08/1506/28/24 History capsule rosuvastatin 10 mg tablet 10 mg PO DAILY Cholestrol 06/28/24 History acetaminophen 500 mg capsule 1,000 mg (2 x 500 mg) PO Q8 PRN 04/07/24 Unknown Rx Pain #90 caps ascorbic acid (vitamin C) 500 mg 500 mg PO BIDCM #60 t abs 04/07/24 06/27/24 Rx tablet rivaroxaban 20 mg tablet 20 mg PO DAILY Blood thinner #30 04/07/24 06/24/24 Rx tabs pantoprazole 40 mg tablet,delayed 40 mg PO BID #90 tab s 04/15/24 06/27/24 Rx release Allergy/AdvReac Type Severity Reaction Status Date / Time Penicillins AdvReac Unknown Other Verified 06/28/24 11:07 Sulfa (Sulfonamide AdvReac Unknown Rash Verified 06/28/24 11:07 Antibiotics) (sulfa drugs) Family History Mother Breast cancer Heart disease Mother had atrial fibrillation. She passed at the age of 89 after a fall. Father CVA (cerebral vascular accident) Cancer Prostate Brother Degenerative disc disease Has had surgery on the cervical spine and the lumbar spine. Sister No problems noted. Surgical History History of removal of ovarian cyst Hx of cholecystectomy H/O adenoidectomy History of tonsillectomy Hx of total knee arthroplasty (~2004) S/P lumbar fusion Social History household members: spouse housing: other details: Ranch with basement. One-step to enter house number of children: 3 pets and animals: No Smoking Status: Never smoker alcohol intake: current alcohol intake frequency: a few times a month Alcohol type: beer substance use type: does not use Review of Systems (Anesthesia) ROS Narrative System reviewed and no additional complaints, except as documented.
--- NOTE | 2024-06-28 12:00 | EGD_PTH ---
PATIENT: SUNNY CHIRINOS LOC: EN U#:[id number] AGE/SX: 73/F ROOM: RE06/28/[address]: Dr. Ang Herbert DO : 1950 BED: DIS: 06/28/2024 SPEC #: [id number] RECD: 06/28/24 13:54 STATUS: [address] #: [id number] RACHEL: 06/28/24 12:[address]: Ang Herbert DEPT: SURGICAL PATHOLOGY RECD BY: Lori Serrano ENTERED: 06/29/24 08:39 SP TYPE: EGD BIOPSY VALENTINO DR: Dr. Raffaele Rodriges MD Tissues: Esophagus, NOS Procedures: Special Stain Group I Surgery Specimen Level IV Alcian Blue/PAS (control) HEADER OPERATION: EGD biopsy PRE-OP DIAGNOSIS: Gastroparesis, upper GI bleed, gastric ulcer TISSUE SUBMITTED: Distal esophagus biopsy MICROSCOPIC DIAGNOSIS Distal esophagus, biopsy: A fragment of gastric mucosa with chronic inflammation. Intestinal metaplasia (goblet cell metaplasia) not identified. See comment. 06/30/2024 COMMENT Alcian blue/PAS stain with matched control is used in the evaluation of the specimen. MICROSCOPIC DESCRIPTION Slides are reviewed. GROSS DESCRIPTION Received in fixative is one container labeled with the patient's name and designated Distal esophagus biopsy. The specimen consists of one irregular fragment of light mantilla soft tissue that measures 0.4 x 0.4 x 0.1 cm. The specimen is totally submitted in one cassette. MS/mr 06/29/2024 TC:3 CPT:96918,78470
--- NOTE | 2024-06-28 12:13 | PCM.HP.STD ---
HPI - General General Date of Admission: 06/28/24 Date of Service: 06/28/24 Chief Complaint: gastric ulcer HPI Narrative SUNNY CHIRINOS, is a 73 F who presents for surveillance of gastric ulcer. *[facility] 03.14.24 transforaminal lumbar interbody fusion *[facility] admission 03[facility]21.24 for bilateral PE and DVT, leukocytosis, and hyponatremia. *[facility] TCU admission 03.27.24-04.09.24 for rehabilitation. Developed UGIB and underwent EGD. EGD 04.01.24; LA Grade D erosive esophagitis with bleeding. Treated with a heater probe. - Small hiatal hernia. - A large amount of food (residue) in the stomach. - Hematin (altered blood/xkprlg-pyldnt-xzvx material) in the stomach. - Oozing gastric ulcer with a visible vessel. Treated with a heater probe. - No gross lesions in the second portion of the duodenum. - No specimens collected. -Ileus with gastroparesis likely secondary to lack of movement and medications OV 04.15.24 pt has been doing well since her hospitalizations. She has questions regarding her medications and how long she will continue them for. She is currently still taking azithromycin, metoclopramide and pantoprazole. She is having a bm every other day which is normal for her. She has no heartburn, n/v, diarrhea, bloating or early satiety. pantoprazole 40 mg PO BID 90 tabs 3RF metoclopramide HCl 10 mg PO ACHS 120 tabs 0RF PFSH Medical History Wears glasses Arthritis Gout High cholesterol GERD (gastroesophageal reflux disease) Non-smoker History of edema History of stress test History of gout Osteoarthritis Anxiety and depression Morbid obesity with BMI of 40.0-44.9, adult Ventral hernia without obstruction or gangrene Neurogenic claudication due to lumbar spinal stenosis Spondylolisthesis High cholesterol Chronic pain Hypertension DVT (deep venous thrombosis) Pulmonary embolism GERD (gastroesophageal reflux disease) Home Medications ?Medication ?Instructions ?Recorded ?Last Taken ?Type allopurinol 300 mg tablet 300 mg PO DAILY Gout 03/27/24 06/27/24 History amlodipine 5 mg-benazepril 20 mg 1 cap PO DAILY BP 03/27/24 06/28/24 History capsule rosuvastatin 10 mg tablet 10 mg PO DAILY Cholestrol 03/27/24 06/28/24 History acetaminophen 500 mg capsule 1,000 mg (2 x 500 mg) PO Q8 PRN 04/07/24 Unknown Rx Pain #90 caps ascorbic acid (vitamin C) 500 mg 500 mg PO BIDCM #60 tabs 04/07/24 06/27/24 Rx tablet rivaroxaban 20 mg tablet 20 mg PO DAILY Blood thinner #30 04/07/24 06/24/24 Rx tabs pantoprazole 40 mg tablet,delayed 40 mg PO BID #90 tabs 04/15/24 06/27/24 Rx release Allergy/AdvReac Type Severity Reaction Status Date / Time Penicillins AdvReac Unknown Other Verified 06/28/24 11:07 Sulfa (Sulfonamide AdvReac Unknown Rash Verified 06/28/24 11:07 Antibiotics) (sulfa drugs) Family History Mother Breast cancer Heart disease Mother had atrial fibrillation. She passed at the age of 89 after a fall. Father CVA (cerebral vascular accident) Cancer Prostate Brother Degenerative disc disease Has had surgery on the cervical spine and the lumbar spine. Sister No problems noted. Surgical History History of removal of ovarian cyst Hx of cholecystectomy H/O adenoidectomy History of tonsillectomy Hx of total knee arthroplasty (~2004) S/P lumbar fusion Social History household members: spouse housing: other details: [place] with basement. One-step to enter house number of children: 3 pets and animals: No Smoking Status: Never smoker alcohol intake: current alcohol intake frequency: a few times a month Alcohol type: beer substance use type: does not use ROS Constitutional Constitutional: Reports fatigue; Denies anorexia, change in weight, chills, fever(s), night sweats or weakness Eyes Eyes: Denies blurry vision, change in vision, eye pain or loss of vision ENT HEENT: Denies abnormal hearing, dysphagia, headache(s), hearing loss, nasal congestion or sore throat Cardiovascular Cardiovascular: Denies chest pain, dyspnea on exertion, edema, lightheadedness, orthopnea, palpitations, paroxysmal nocturnal dyspnea or syncope Respiratory/Chest Respiratory/Chest: Denies cough, dyspnea, shortness of breath at rest, shortness of breath with exertion or wheezing Gastrointestinal Gastrointestinal: Denies abdominal pain, constipation, diarrhea, dyspepsia, hematemesis, hematochezia, nausea or vomiting Genitourinary Genitourinary: Denies dysuria, hematuria, nocturia, urinary frequency, urinary hesitancy, urinary incontinence or urinary urgency Musculoskeletal Musculoskeletal: Reports back pain, extremity pain, radiating pain into limb and stiffness; Denies joint pain, joint swelling or neck pain Integumentary Integumentary: Reports other Details: Surgical incision over lumbar spine ; Denies alopecia, changing lesions, jaundice, pruritus or rash Neurologic Neurologic: Reports radicular pain and other Details: Radicular pain, primarily into the right lower extremity ; Denies confusion, disequilibrium, dizziness, focal weakness, headache(s), paresthesias, seizures or tremor(s) Psychiatric Psychiatric: Denies anxiety, depression, homicidal ideation or suicidal ideation Endocrine Endocrinology: Denies change in body appearance, polydipsia or polyuria Hematologic/Lymphatic Hematologic/Lymphatic: Denies easy bleeding, easy bruising or lymphadenopathy Allergic/Immunologic Allergic/Immunologic: Denies rhinitis, eczemia or asthma Vital Signs Vital Signs Vital Signs: 06/28/24 11:27 06/28/24 11:27 06/28/24 11:51 Temperature 97.2 F L 97.2 F L Temperature Source Temporal Pulse Rate 65 65 Respiratory Rate 17 17 Respiratory Pattern Normal Blood Pressure 130/48 H 130/48 H Blood Pressure Mean 75 Blood Pressure Source Monitor Blood Pressure Position Semi-Fowlers Blood Pressure Location Left Forearm Pulse Ox 99 99 Oxygen Delivery Method Room Air Room Air Weight Weight: 228 lb 6.382 oz Body Mass Index (BMI) 40.4 Physical Exam Const alert, oriented x3, no apparent distress and healthy appearing General Appearance: cooperative GI normal to inspection, nondistended, normoactive bowel sounds, soft to palpation, non-tender and non-distended Percussion: normal to percussion Rectal Exam: deferred Assessment & Plan Assessment/Plan (1) Gastroparesis: (2) UGI bleed: (3) Gastric ulcer: QUALIFIERS: Gastric ulcer chronicity: acute Gastric ulcer complication status: with hemorrhage Qualified Code(s): K25.0 - Acute gastric ulcer with hemorrhage PLAN: Assessment and Plan Assessment and Plan (1) Gastric ulcer: Status: Acute Qualifiers: Gastric ulcer chronicity: acute Gastric ulcer complication status: with hemorrhage Qualified Code(s): K25.0 - Acute gastric ulcer with hemorrhage Plan: This is a 73 yo female here today for hospital f/u. Pt was on the TCU here at [facility] from 03.27.24-04.19.24 after bilateral PE, DVT, hyponatremia and leukocytosis. Since being home she has been doing well but continues to be weak and fatigued. She has no GI symptoms. I reviewed the results of her EGD with her and explained all her medications. She will continue with Pantoprazole and metoclopramide for at least three months. Once she is out of her azithromycin prescription she can stop it. She will undergo EGD to ensure healing of gastric ulcer in 3 months. She is not having issues w/ constipation at this time. She will take senna just as needed. -EGD -Continue metoclopramide -Continue PPI -Discontinue azithromycin after completed -Take Senna as needed - (2) Erosive esophagitis: Status: Acute (3) Gastroparesis: Status: Acute Medications: Refilled pantoprazole 40 mg PO BID 90 tabs 3RF metoclopramide HCl 10 mg PO ACHS 120 tabs 0RF
--- NOTE | 2024-06-28 12:32 | PCM.POST.ANE ---
Anesthesia: Postop Eval I Current Vital Signs Temperature: 97.1 F Pulse Rate: 94 Blood Pressure: 114/62 Respiratory Rate: 20 Pulse Ox: 99 Oxygen Delivery Method: Room Air Assessment Airway patent: Yes Spontaneous unlabored respirations: Yes Mental status: Awake and Calm nausea: No Vomiting: No Anesthesia Complication: No Fluid Hydration Crystalloid volume administer (ml): 10 Total IV fluid infused: 10 Progress Note Anesthesia document: Postop Eval 1 completed: Yes
--- NOTE | 2024-06-28 12:34 | OP.EGD_ITS ---
Patient Name: Stefanie Taylor Procedure Date: 06/28/2024 10:59 AM Date of : 1950 Age: 73 Procedure: Upper GI endoscopy Indications: Follow-up of acute peptic ulcer Providers: Ang Herbert DO Referring MD: Raffaele Rodriges Md Medicines: Monitored Anesthesia Care Patient Profile: This is a 73 year old female. Complications: No immediate complications. Procedure: Pre-Anesthesia Assessment: - Prior to the procedure, a History and Physical was performed, and patient medications and allergies were reviewed. The patient is competent. The risks and benefits of the procedure and the sedation options and risks were discussed with the patient. All questions were answered and informed consent was obtained. Patient identification and proposed procedure were verified by the physician in the pre-procedure area. Airway Examination: normal oropharyngeal airway and neck mobility. Respiratory Examination: clear to auscultation. CV Examination: normal. Prophylactic Antibiotics: The patient does not require prophylactic antibiotics. Prior Anticoagulants: The patient has taken no anticoagulant or antiplatelet agents except for NSAID medication. ASA Grade Assessment: II - A patient with mild systemic disease. After reviewing the risks and benefits, the patient was deemed in satisfactory condition to undergo the procedure. The anesthesia plan was to use monitored anesthesia care (MAC). Immediately prior to administration of medications, the patient was re-assessed for adequacy to receive sedatives. The heart rate, respiratory rate, oxygen saturations, blood pressure, adequacy of pulmonary ventilation, and response to care were monitored throughout the procedure. The physical status of the patient was re-assessed after the procedure. After obtaining informed consent, the endoscope was passed under direct vision. Throughout the procedure, the patient's blood pressure, pulse, and oxygen saturations were monitored continuously. The Endoscope was introduced through the mouth, and advanced to the second part of duodenum. The upper GI endoscopy was accomplished without difficulty. The patient tolerated the procedure well. Scope In: 12:20:36 PM Scope Out: 12:23:57 PM Total Procedure Duration Time 0 hours 3 minutes 21 seconds Findings: There were esophageal mucosal changes consistent with short-segment Butler's esophagus present in the lower third of the esophagus. The maximum longitudinal extent of these mucosal changes was 2 cm in length. Mucosa was biopsied with a cold forceps for histology in a targeted manner at intervals of 1 cm in the lower third of the esophagus. One specimen bottle was sent to pathology. Verification of patient identification for the specimen was done. Estimated blood loss was minimal. A small hiatal hernia was present. No other significant abnormalities were identified in a careful examination of the stomach. No gross lesions were noted in the second portion of the duodenum. 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 Biopsied. - Small hiatal hernia. - No gross lesions in the second portion of the duodenum. Recommendation: - Discharge patient to home. - Resume previous diet. - Continue present medications. - Await pathology results. Procedure Code(s): --- Professional --- 37201, Esophagogastroduodenoscopy, flexible, transoral; with biopsy, single or multiple CPT copyright 2021 [employer]. All rights reserved. The codes documented in this report are preliminary and upon ambulatory analyst review may be revised to meet current compliance requirements. Ang Herbert DO 06/28/2024 12:34:04 PM This report has been signed electronically. Number of Addenda: 0 Note Initiated On: 06/28/2024 10:59 AM
--- NOTE | 2024-06-28 12:34 | OP.CCLET_ITS ---
06/28/2024 Raffaele Rodriges Md Re : Upper GI endoscopy procedure for Stefanie Taylor Dear Dr. Rodriges This procedure was performed on Friday, June 28, 2024. 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 Biopsied. - Small hiatal hernia. - No gross lesions in the second portion of the duodenum. Recommendations : - Discharge patient to home. - Resume previous diet. - Continue present medications. - Await pathology results. My findings are described in the full procedure note, which is enclosed. If I can be of further assistance, please feel free to contact me at . Sincerely, Ang Herbert, 06/28/2024 12:34:04 PM This report has been signed electronically.
--- NOTE | 2024-06-28 15:07 | POSTOPAN2_ITS ---
Anesthesia Postop Eval I Sum Postop Eval Completion status Anesthesia document: Postop Eval 1 completed: Yes Anesthesia Postop Eval I Summary Anesthesia Postop Eval I Summary: Anesthesia Postop Eval I: Assessment Summary Airway patent Yes 06/28/24 12:33 RISK INTERN.[email or web address] Spontaneous unlabored Yes 06/28/24 12:33 RISK INTERN.DBAK respirations Mental status Awake,Calm 06/28/24 12:33 RISK INTERN.DBAK nausea No 06/28/24 12:33 RISK INTERN.DBAK Vomiting No 06/28/24 12:33 RISK INTERN.DBAK Anesthesia Postop Eval I: Fluid Summary Crystalloid volume administer 10 06/28/24 12:33 RISK INTERN.DBAK (ml) Colloids volume administered ( ml) Blood Product volume administered (ml) Total IV fluid infused 10 06/28/24 12:33 RISK INTERN.DBAK Anesthesia Postop Eval I: Summary Notes Anesthesia Complication No 06/28/24 12:33 RISK INTERN.DBAK Anesthesia Complication Comment: Post-operative progress note Anesthesia: Postop Eval II Evaluation Mental status: Awake Pain Level: 0 nausea: No Vomiting: No
--- NOTE | 2024-06-28 15:07 | PCM.POSTANE2 ---
Anesthesia Postop Eval I Sum Postop Eval Completion status Anesthesia document: Postop Eval 1 completed: Yes Anesthesia Postop Eval I Summary Anesthesia Postop Eval I Summary: Anesthesia Postop Eval I: Assessment Summary Airway patent Yes 06/28/24 12:33 WAREHOUSE LOGISTICS COORDINATOR.DBAK Spontaneous unlabored Yes 06/28/24 12:33 WAREHOUSE LOGISTICS COORDINATOR.DBAK respirations Mental status Awake,Calm 06/28/24 12:33 WAREHOUSE LOGISTICS COORDINATOR.DBAK nausea No 06/28/24 12:33 WAREHOUSE LOGISTICS COORDINATOR.DBAK Vomiting No 06/28/24 12:33 WAREHOUSE LOGISTICS COORDINATOR.DBAK Anesthesia Postop Eval I: Fluid Summary Crystalloid volume administer 10 06/28/24 12:33 WAREHOUSE LOGISTICS COORDINATOR.DBAK (ml) Colloids volume administered ( ml) Blood Product volume administered (ml) Total IV fluid infused 10 06/28/24 12:33 WAREHOUSE LOGISTICS COORDINATOR.DBAK Anesthesia Postop Eval I: Summary Notes Anesthesia Complication No 06/28/24 12:33 WAREHOUSE LOGISTICS COORDINATOR.DBAK Anesthesia Complication Comment: Post-operative progress note Anesthesia: Postop Eval II Evaluation Mental status: Awake Pain Level: 0 nausea: No Vomiting: No
== END 2024-06-28 12:58 | disposition home or self-care (01) ==
LOC: EN 11:08 → AC 11:11
PROVIDERS: Visit Provider Internal Medicine Gastroenterology
PROC: 0DJ08ZZ Inspection of Upper Intestinal Tract, Via Natural or Artificial Opening Endoscopic (ICD-10-PCS; CPT 43235; principal; 2024-06-28 11:55)
DX: K25.0 Acute gastric ulcer with hemorrhage (principal); K22.10 Ulcer of esophagus without bleeding; K44.9 Diaphragmatic hernia without obstruction or gangrene; K31.84 Gastroparesis; I10 Essential (primary) hypertension; E78.00 Pure hypercholesterolemia, unspecified; Z79.899 Other long term (current) drug therapy
CPT/HCPCS: 43239; 88305; 88312; A4216